=== PATIENT | female | born 1965 | race Caucasian/White ===

== ENCOUNTER → 2016-04-26 | Outpatient (CLI) | payer BC ==
[~2016-04-26] MED LIST: GEMCITABINE; PROT1TAB2 PO; TYLE325C PO; [UNRECOGNIZED DRUG - OTHER]; [UNRECOGNIZED DRUG - OTHER]
[2016-04-26 08:48] LABS: ABG HCO3 26.8 MEQ/L (22.0-26.0); ABG PARTIAL PRESSURE CO2 42.7 mmHg (35.0-45.0); ABG PARTIAL PRESSURE O2 94.2 mmHg (75.0-100.0); ABG STANDARD HCO3 26.2 MEQ/L (22.0-26.0); ABG TOTAL CO2 28.1 MEQ/L (22.0-29.0); ABG pH (ARTERIAL) 7.416 UNITS (7.350-7.450)
[2016-04-26 09:00] LABS: MEAN CORPUSCULAR HEMOGLOBIN 32.5 pg (27.0-33.0); MEAN CORPUSCULAR HGB CONC 33.4 g/dl (32.0-36.5); MEAN CORPUSCULAR VOLUME 97.3 fl (80.0-96.0); RED CELL DISTRIBUTION WIDTH 13.5 % (11.5-14.5); WHITE BLOOD COUNT 6.2 K/mm3 (4.0-10.0)
[2016-04-26 09:19] LABS: ANION GAP 7 MEQ/L (8-16); BLOOD UREA NITROGEN 17 MG/DL (7-18); CALCIUM LEVEL 9.4 MG/DL (8.5-10.1); CARBON DIOXIDE LEVEL 31 MEQ/L (21-32); CHLORIDE LEVEL 104 MEQ/L (98-107); CREATININE FOR GFR 0.84 MG/DL (0.55-1.02); GLOMERULAR FILTRATION RATE > 60.0 (>58); GLUCOSE, FASTING 114 MG/DL (70-105); POTASSIUM SERUM 4.6 MEQ/L (3.5-5.1); SODIUM LEVEL 142 MEQ/L (136-145)
[2016-04-26 09:26] LABS: INR 0.93
--- NOTE | 2016-04-26 09:28 | REP ---
Clinical: Preoperative assessment . Comparison: 01/29/2015 . Technique: PA and lateral. Findings: The mediastinum and cardiac silhouette are normal. Cpysfv-D-Etar with tip in the SVC. The lung murphy are clear and without acute consolidation, effusion, or pneumothorax. The skeletal structures are intact and normal. Impression: 1. No acute cardiopulmonary process. Signed by Espinoza Paris MD 04/26/2016 09:20 A
--- NOTE | 2016-04-26 11:12 | ECGEPIP ---
Stationary ECG Study [facility] Test Date: 2016-04-26 Pat Name: DAKOTA PONCE Department: Room: - Gender: F Manager Pharmacy: [facility] : 1965 Requested By: Khris Tello Order Number: [id number] Reading MD: Orestes Loco Measurements Intervals [place] Rate: 64 P: 61 ME: 155 QRS: 60 QRSD: 86 T: 41 QT: 408 QTc: 421 Interpretive Statements SINUS RHYTHM Comparison tracing not on file Electronically Signed On 04-26-2016 11:12:40 EST by Orestes Loco
== END ==
LOC: M LAB 08:16
PROVIDERS: ATTEND Thoracic Surgery (Cardiothoracic Vascular Surgery)
DX: Z01.818 Encounter for other preprocedural examination (principal)

== ENCOUNTER → 2016-05-01 | Outpatient (CLI) | payer BC ==
--- NOTE | 2016-05-01 20:06 | REP ---
CT study of the chest with IV contrast: History: Ampullary carcinoma with lung metastases. Comparison is made with prior studies. The most recent of these is a chest CT study from January 10, 2016. Comparison is also made with November 16, 2015, September 06, 2015, and July 23, 2015. CT findings: There is a right internal jugular vein [id number]-Z-Ufsa catheter. There is no evidence of pleural or pericardial effusion. No mediastinal adenopathy or hilar adenopathy is appreciated. No adrenal mass lesion is seen. There are clips and sutures in the upper abdomen. No hepatic mass lesion is seen. Bone window settings show no bony destructive lesion. There are however innumerable metastatic pulmonary nodules. The largest of these is a somewhat spiculated mass in the left lower lobe. This measures 2.7 cm by 2.3 cm today. On January 10, 2016 study it measured 2.3 by 1.8 cm. The nearby tumor deposit adjacent to the left posterolateral pericardium in the left lower lobe is again seen. This is probably unchanged. There are numerous other nodules which are increased in size compared to the most recent prior study of January 10, 2016. These include a nodule in the right middle lobe, which measures 10 mm today and was previously 7 mm. This is seen on page 62 of 108 of series 301 of today's exam. There is a 6 mm nodule in the left lower lobe on image 76 of 108 in series 301 of today's examination which was 3 mm in greatest diameter in December 2015. There are multiple other nodules which have grown similarly. I do not see any definitely new nodules. Impression: Progressive pulmonary metastatic disease. Innumerable pulmonary nodules are seen. Numerous nodules have increased in size since the most recent prior study of January 10, 2016. Signed by Marcus Cain MD 05/02/2016 08:00 A
== END ==
LOC: M RAD 16:54
PROVIDERS: ATTEND Thoracic Surgery (Cardiothoracic Vascular Surgery)
DX: R91.8 Other nonspecific abnormal finding of lung field (principal)

== ENCOUNTER 2016-05-16 15:18 | Emergency (ER) | payer BC ==
[2016-05-16] MEDS ORDERED: diphenhydrAMINE 25 MG CAP As Ordered ONE (16:37)
[2016-05-16] MEDS ORDERED: predniSONE 5 MG TAB As Ordered ONE (16:37)
--- NOTE | 2016-05-16 18:06 | EDDOCDS ---
Nurse's Notes [facility] Name: Sophie Parish Age: 51 yrs Sex: Female : 1965 Arrival Date: 05/16/2016 Time: 15:18 Bed 8 Private MD: Allegra Arboleda P. 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 Patient states that her tongue feels funny and that her lips feel tingly. Patient concerned for allergic reaction. Patient has paused Chemo regimen machine at present - infusaport noted to left upper chest. Onset: The symptoms/episode began/occurred suddenly. The patient has a history of a previous allergic reaction. The previous allergic reaction was localized. Anaphylaxis evaluation, the patient reports or I have noted the following symptoms which indicate a significant risk of anaphylaxis: no signs or symptoms of anaphylaxis were noted. Adult Sepsis Screening: The patient does not have new or worsening altered mentation. Patient's respiratory rate is less than 22. Systolic blood pressure is greater than 100. Patient has a qSOFA score of 0- Negative Sepsis Screen. Suicide/Homicide risk assessment- the patient denies having any suicidal and/or homicidal ideations and does not present with any other emotional, behavioral or mental health complaints. Status: Patient is not a sales and service consultant or dependent. Transition of care: patient was not received from another setting of care. 15:25 Acuity: PAYTON Level 3 hs1 15:25 Method Of Arrival: Walkin/Carried/Asstd hs1 Triage Assessment: 15:32 General: Appears in no apparent distress, Behavior is anxious, cooperative. Pain: hs1 Location: throat Quality of pain is described as razor blades. HIV screening NA for this visit Offered previously. Respiratory: Reports no respiratory complaints. Historical: - Allergies: IV Dyepossibly; - Home Meds: 1. Protonix 40 mg Oral grps 1 packet 2 times per day 2. prochlorperazine maleate 10 mg Oral tab 1 tab 3 times per day 3. chemo regimen today * - PMHx: Cancer, Lung - Left; Cancer, Pancreas; - PSHx: wipple procedure; - Social history: Smoking status: Patient states former smoker of tobacco. No barriers to communication noted, The patient speaks fluent Slovenian, Speaks appropriately for age. - Family history: No immediate family members are acutely ill. - : The pt / caregiver states he / she is not on anticoagulants. Home medication list is obtained from the patient. - Exposure Risk Screening:: None identified. Screenin:01 Screening information is obtained from the patient. Fall risk: No risks identified. mb9 Assistance ADL's: requires no assistance with activities of daily living. Abuse/DV Screen: The patient / caregiver reports he/she is: not in a situation that causes fear, pain or injury. Nutritional screening: No deficits noted. Advance Directives: There is no active DNR order. home support is adequate. Assessment: 15:50 General: Appears in no apparent distress, Behavior is appropriate for age, cooperative. mb9 Pain: Denies pain. Respiratory: Airway is patent Respiratory effort is even, unlabored, Breath sounds are clear bilaterally. Derm: Reports pt states, "it felt like my tongue was swollen and it felt like razor blades when I would swallow. It feels like its better now". 17:08 Reassessment: Patient appears in no apparent distress at this time. Patient states mb9 symptoms have improved. General: Behavior is fussy. Pain: Denies pain. Respiratory: Airway is patent Respiratory effort is even, unlabored. 18:00 Reassessment: Patient appears in no apparent distress at this time. Patient states mb9 symptoms have improved. Adult Sepsis Screening: The patient does not have new or worsening altered mentation. Patient's respiratory rate is less than 22. Systolic blood pressure is greater than 100. Patient has a qSOFA score of 0- Negative Sepsis Screen. General: Appears in no apparent distress, Behavior is appropriate for age, cooperative. Respiratory: Airway is patent Respiratory effort is even, unlabored. Vital Signs: 15:20 BP 158 / 93; Pulse 83; Resp 20; Temp 97.7; Pulse Ox 100% on R/A; Weight 63.5 kg (R); elp Height 5 ft. 6 in. (167.64 cm) (R); 18:01 BP 132 / 76; Pulse 84; Resp 17; Temp 98.3(T); Pulse Ox 99% ; mb9 15:20 Body Mass Index 22.60 (63.50 kg, 167.64 cm) elp Vitals: 15:20 Log In Time: May 16, 2016 at 15:18. RN notified that patient meets Red Flag elp criteria. ED Course: 15:20 Patient visited by Alondra Berry PCA. elp 15:20 Allegra Arboleda is Private Physician. elp 15:20 Patient moved to Waiting elp 15:21 Patient visited by Alondra Berry PCA. elp 15:22 Shannon Frank,RN is Primary Nurse. elp 15:22 Patient moved to 8 elp 15:29 Triage Initiated hs1 15:53 [facility]. ke 15:53 Patient visited by Manny Moy FNP. ke 15:53 Patient visited by Manny Moy FNP. ke 16:23 Patient visited by Manny Moy FNP. ke 16:58 Patient visited by Manny Moy FNP. ke 17:30 Patient visited by Manny Moy FNP. ke 17:31 Allegra Arboleda is Referral Physician. ke 18:01 The patient / caregiver is instructed regarding the plan of care and ED course. Patient mb9 has correct armband on for positive identification. 18:01 Discontinued pt had 20 gauge watts neeble in place to infusaport to left chest. site mb9 discontinued at this time. No procedures done that require assistance. Administered Medications: 16:50 Drug: diphenhydrAMINE 25 mg [diphenhydramine 25 mg capsule (1 caps)] Route: PO; mb9 16:51 Drug: predniSONE 20 mg [prednisone 5 mg tablet (4 tabs)] Route: PO; mb9 18:01 Drug: heparin 100units/mL flush (infusaport) 5 ml [heparin, porcine (PF) 10 unit/mL mb9 intravenous syringe (5 mL)] Route: IVP; Site: Implantable Access Device; Order Results: There are currently no results for this order. Outcome: 17:31 Discharge ordered by Provider. ke 18:01 Discharge Assessment: Patient awake, alert and oriented x 3. No cognitive and/or mb9 functional deficits noted. Patient verbalized understanding of disposition instructions. patient administered narcotics - no. The following High Risk Discharge criteria are identified: None. Discharged to home ambulatory. Condition: good Condition: stable Condition: improved. Discharge instructions given to patient, Instructed on discharge instructions, follow up and referral plans. medication usage, Demonstrated understanding of instructions, medications, Pt was receptive of discharge instructions/ teaching. Prescriptions given X 2. No special radiology studies were completed. Property :Personal belongings accompany Pt. 18:05 Patient left the ED. mb9 Signatures: Manny Moy FNP FNP ke Sherrill, Hannah, RN RN hs1 Alondra Berry PCA PCA elp Belles, Michael,CHRIS RN mb9 MTDD
--- NOTE | 2016-05-16 18:06 | EDDOCDS ---
Physician Documentation [facility] Name: Sophie Parish Age: 51 yrs Sex: Female : 1965 Arrival Date: 05/16/2016 Time: 15:18 Bed 8 Private MD: Allegra Arboleda P. Disposition: 05/16/16 17:31 Discharged to Home/Self Care. Impression: Allergy status to other drugs, medicaments and biological substances status. - Condition is Stable. - Discharge Instructions: Allergies. - Prescriptions for Benadryl 25 mg Oral Capsule - take 1 capsule by ORAL route every 6 hours As needed; 30 tablet. Prednisone 20 mg Oral Tablet - take 1 tablet by ORAL route once daily for 5 days; 5 tablet. - Medication Reconciliation, Local Pharmacy Hours form. - Follow up: Allegra Arboleda; When: Tomorrow; Reason: Recheck today's complaints, Continuance of care. - Problem is an acute exacerbation. - Symptoms have improved. Historical: - Allergies: IV Dyepossibly; - Home Meds: 1. Protonix 40 mg Oral grps 1 packet 2 times per day 2. prochlorperazine maleate 10 mg Oral tab 1 tab 3 times per day 3. chemo regimen today * - PMHx: Cancer, Lung - Left; Cancer, Pancreas; - PSHx: wipple procedure; - Social history: Smoking status: Patient states former smoker of tobacco. No barriers to communication noted, The patient speaks fluent Swedish, Speaks appropriately for age. - Family history: No immediate family members are acutely ill. - : The pt / caregiver states he / she is not on anticoagulants. Home medication list is obtained from the patient. - Exposure Risk Screening:: None identified. Vital Signs: 05/16 15:20 BP 158 / 93; Pulse 83; Resp 20; Temp 97.7; Pulse Ox 100% on R/A; Weight 63.5 kg / elp 139.99 lbs (R); Height 5 ft. 6 in. (167.64 cm) (R); 18:01 BP 132 / 76; Pulse 84; Resp 17; Temp 98.3(T); Pulse Ox 99% ; mb9 15:20 Body Mass Index 22.60 (63.50 kg, 167.64 cm) elp MDM: 16:18 diphenhydrAMINE 25 mg PO once ordered. carissa 16:18 predniSONE 20 mg PO once; administer with food or milk ordered. carissa 17:22 Financial registration complete. gjivania 18:01 heparin 100units/mL flush (infusaport) 5 ml IVP once; flush first with 10mL of NS mb9 followed by heparin ordered. Administered Medications: 16:50 Drug: diphenhydrAMINE 25 mg [diphenhydramine 25 mg capsule (1 caps)] Route: PO; mb9 16:51 Drug: predniSONE 20 mg [prednisone 5 mg tablet (4 tabs)] Route: PO; mb9 18:01 Drug: heparin 100units/mL flush (infusaport) 5 ml [heparin, porcine (PF) 10 unit/mL mb9 intravenous syringe (5 mL)] Route: IVP; Site: Implantable Access Device; Signatures: Manny Moy, KETTLE COOK KETTLE COOK Arlene Howard RN RN hs1 Jabier Jenkins RN RN mb9 Marimar Schmitz [facility] HILLARY
--- NOTE | 2016-05-18 19:06 | EDDOCDS ---
Nurse's Notes [facility] Name: Sophie Parish Age: 51 yrs Sex: Female : 1965 Arrival Date: 05/16/2016 Time: 15:18 Bed 8 Private MD: Allegra Arboleda P. 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 Patient states that her tongue feels funny and that her lips feel tingly. Patient concerned for allergic reaction. Patient has paused Chemo regimen machine at present - infusaport noted to left upper chest. Onset: The symptoms/episode began/occurred suddenly. The patient has a history of a previous allergic reaction. The previous allergic reaction was localized. Anaphylaxis evaluation, the patient reports or I have noted the following symptoms which indicate a significant risk of anaphylaxis: no signs or symptoms of anaphylaxis were noted. Adult Sepsis Screening: The patient does not have new or worsening altered mentation. Patient's respiratory rate is less than 22. Systolic blood pressure is greater than 100. Patient has a qSOFA score of 0- Negative Sepsis Screen. Suicide/Homicide risk assessment- the patient denies having any suicidal and/or homicidal ideations and does not present with any other emotional, behavioral or mental health complaints. Status: Patient is not a vp celebrity services or dependent. Transition of care: patient was not received from another setting of care. 15:25 Acuity: PAYTON Level 3 hs1 15:25 Method Of Arrival: Walkin/Carried/Asstd hs1 Triage Assessment: 15:32 General: Appears in no apparent distress, Behavior is anxious, cooperative. Pain: hs1 Location: throat Quality of pain is described as razor blades. HIV screening NA for this visit Offered previously. Respiratory: Reports no respiratory complaints. Historical: - Allergies: IV Dyepossibly; - Home Meds: 1. Protonix 40 mg Oral grps 1 packet 2 times per day 2. prochlorperazine maleate 10 mg Oral tab 1 tab 3 times per day 3. chemo regimen today * - PMHx: Cancer, Lung - Left; Cancer, Pancreas; - PSHx: wipple procedure; - Social history: Smoking status: Patient states former smoker of tobacco. No barriers to communication noted, The patient speaks fluent German, Speaks appropriately for age. - Family history: No immediate family members are acutely ill. - : The pt / caregiver states he / she is not on anticoagulants. Home medication list is obtained from the patient. - Exposure Risk Screening:: None identified. Screenin:01 Screening information is obtained from the patient. Fall risk: No risks identified. mb9 Assistance ADL's: requires no assistance with activities of daily living. Abuse/DV Screen: The patient / caregiver reports he/she is: not in a situation that causes fear, pain or injury. Nutritional screening: No deficits noted. Advance Directives: There is no active DNR order. home support is adequate. Assessment: 15:50 General: Appears in no apparent distress, Behavior is appropriate for age, cooperative. mb9 Pain: Denies pain. Respiratory: Airway is patent Respiratory effort is even, unlabored, Breath sounds are clear bilaterally. Derm: Reports pt states, "it felt like my tongue was swollen and it felt like razor blades when I would swallow. It feels like its better now". 17:08 Reassessment: Patient appears in no apparent distress at this time. Patient states mb9 symptoms have improved. General: Behavior is fussy. Pain: Denies pain. Respiratory: Airway is patent Respiratory effort is even, unlabored. 18:00 Reassessment: Patient appears in no apparent distress at this time. Patient states mb9 symptoms have improved. Adult Sepsis Screening: The patient does not have new or worsening altered mentation. Patient's respiratory rate is less than 22. Systolic blood pressure is greater than 100. Patient has a qSOFA score of 0- Negative Sepsis Screen. General: Appears in no apparent distress, Behavior is appropriate for age, cooperative. Respiratory: Airway is patent Respiratory effort is even, unlabored. Vital Signs: 15:20 BP 158 / 93; Pulse 83; Resp 20; Temp 97.7; Pulse Ox 100% on R/A; Weight 63.5 kg (R); elp Height 5 ft. 6 in. (167.64 cm) (R); 18:01 BP 132 / 76; Pulse 84; Resp 17; Temp 98.3(T); Pulse Ox 99% ; mb9 15:20 Body Mass Index 22.60 (63.50 kg, 167.64 cm) elp Vitals: 15:20 Log In Time: May 16, 2016 at 15:18. RN notified that patient meets Red Flag elp criteria. ED Course: 15:20 Patient visited by Alondra Berry PCA. elp 15:20 Allegra Arboleda is Private Physician. elp 15:20 Patient moved to Waiting elp 15:21 Patient visited by Alondra Berry PCA. elp 15:22 Shannon Frank,RN is Primary Nurse. elp 15:22 Patient moved to 8 elp 15:29 Triage Initiated hs1 15:53 Manny [facility]oy FNP [facility]. ke 15:53 Patient visited by Manny Moy FNP. ke 15:53 Patient visited by Manny Moy FNP. ke 16:23 Patient visited by Manny Moy FNP. ke 16:58 Patient visited by Manny Moy FNP. ke 17:30 Patient visited by Manny Moy FNP. ke 17:31 Allegra Arboleda is Referral Physician. ke 18:01 The patient / caregiver is instructed regarding the plan of care and ED course. Patient jg9 has correct armband on for positive identification. 18:01 Discontinued pt had 20 gauge watts neeble in place to infusaport to left chest. site mb9 discontinued at this time. No procedures done that require assistance. 18:19 [facility] Payment Agreement was scanned into [employer] and attached to record. [facility] 05/17 11:34 T-Sheet-- Draft Copy was scanned into [employer] and attached to record. gb Administered Medications: 05/16 16:50 Drug: diphenhydrAMINE 25 mg [diphenhydramine 25 mg capsule (1 caps)] Route: PO; mb9 16:51 Drug: predniSONE 20 mg [prednisone 5 mg tablet (4 tabs)] Route: PO; mb9 18:01 Drug: heparin 100units/mL flush (infusaport) 5 ml [heparin, porcine (PF) 10 unit/mL mb9 intravenous syringe (5 mL)] Route: IVP; Site: Implantable Access Device; Order Results: There are currently no results for this order. Outcome: 17:31 Discharge ordered by Provider. ke 18:01 Discharge Assessment: Patient awake, alert and oriented x 3. No cognitive and/or mb9 functional deficits noted. Patient verbalized understanding of disposition instructions. patient administered narcotics - no. The following High Risk Discharge criteria are identified: None. Discharged to home ambulatory. Condition: good Condition: stable Condition: improved. Discharge instructions given to patient, Instructed on discharge instructions, follow up and referral plans. medication usage, Demonstrated understanding of instructions, medications, Pt was receptive of discharge instructions/ teaching. Prescriptions given X 2. No special radiology studies were completed. Property :Personal belongings accompany Pt. 18:05 Patient left the ED. mb9 Signatures: Pina Felder, Reg Reg gb Manny Moy, FOOD SERVICE SPECIALIST FOOD SERVICE SPECIALIST Arlene Howard RN RN hs1 Alondra Berry, Jabier Reynolds RN RN mb9 Marimar Schmitz Chart Complete [place]ILLARY
--- NOTE | 2016-05-18 19:06 | EDDOCDS ---
Physician Documentation [facility] Name: Sophie Parish Age: 51 yrs Sex: Female : 1965 Arrival Date: 05/16/2016 Time: 15:18 Bed 8 Private MD: Allegra Arboleda P. Disposition: 05/16/16 17:31 Discharged to Home/Self Care. Impression: Allergy status to other drugs, medicaments and biological substances status. - Condition is Stable. - Discharge Instructions: Allergies. - Prescriptions for Benadryl 25 mg Oral Capsule - take 1 capsule by ORAL route every 6 hours As needed; 30 tablet. Prednisone 20 mg Oral Tablet - take 1 tablet by ORAL route once daily for 5 days; 5 tablet. - Medication Reconciliation, Local Pharmacy Hours form. - Follow up: Allegra Arboleda; When: Tomorrow; Reason: Recheck today's complaints, Continuance of care. - Problem is an acute exacerbation. - Symptoms have improved. Historical: - Allergies: IV Dyepossibly; - Home Meds: 1. Protonix 40 mg Oral grps 1 packet 2 times per day 2. prochlorperazine maleate 10 mg Oral tab 1 tab 3 times per day 3. chemo regimen today * - PMHx: Cancer, Lung - Left; Cancer, Pancreas; - PSHx: wipple procedure; - Social history: Smoking status: Patient states former smoker of tobacco. No barriers to communication noted, The patient speaks fluent Telugu, Speaks appropriately for age. - Family history: No immediate family members are acutely ill. - : The pt / caregiver states he / she is not on anticoagulants. Home medication list is obtained from the patient. - Exposure Risk Screening:: None identified. Vital Signs: 05/16 15:20 BP 158 / 93; Pulse 83; Resp 20; Temp 97.7; Pulse Ox 100% on R/A; Weight 63.5 kg / elp 139.99 lbs (R); Height 5 ft. 6 in. (167.64 cm) (R); 18:01 BP 132 / 76; Pulse 84; Resp 17; Temp 98.3(T); Pulse Ox 99% ; mb9 15:20 Body Mass Index 22.60 (63.50 kg, 167.64 cm) elp MDM: 16:18 diphenhydrAMINE 25 mg PO once ordered. ke 16:18 predniSONE 20 mg PO once; administer with food or milk ordered. ke 17:22 Financial registration complete. b 18:01 heparin 100units/mL flush (infusaport) 5 ml IVP once; flush first with 10mL of NS mb9 followed by heparin ordered. 18:19 [facility] Payment Agreement was scanned into [employer] and attached to record. [facility] 05/17 11:34 T-Sheet-- Draft Copy was scanned into [employer] and attached to record. gb Administered Medications: 05/16 16:50 Drug: diphenhydrAMINE 25 mg [diphenhydramine 25 mg capsule (1 caps)] Route: PO; mb9 16:51 Drug: predniSONE 20 mg [prednisone 5 mg tablet (4 tabs)] Route: PO; mb9 18:01 Drug: heparin 100units/mL flush (infusaport) 5 ml [heparin, porcine (PF) 10 unit/mL mb9 intravenous syringe (5 mL)] Route: IVP; Site: Implantable Access Device; Signatures: Pina Felder, Reg Reg gb Manny Moy, RENEWALS MANAGER RENEWALS MANAGER Arlene Howard RN RN hs1 Jabier JenkinsRN RN mb9 Marimar Schmitz The chart was reviewed and I authenticate all verbal orders and agree with the evaluation and treatment provided.Attachments: 18:19 [facility] Payment Agreement [facility] 05/17 11:34 T-Sheet-- Draft Copy gb Chart Complete MTDD
--- NOTE | 2016-05-18 19:06 | EDDOCDS ---
Physician Documentation [employer] Name: Sophie Parish Age: 51 yrs Sex: Female : 1965 Arrival Date: 05/16/2016 Time: 15:18 Bed 8 Private MD: Allegra Arboleda P. Disposition: 05/16/16 17:31 Discharged to Home/Self Care. Impression: Allergy status to other drugs, medicaments and biological substances status. - Condition is Stable. - Discharge Instructions: Allergies. - Prescriptions for Benadryl 25 mg Oral Capsule - take 1 capsule by ORAL route every 6 hours As needed; 30 tablet. Prednisone 20 mg Oral Tablet - take 1 tablet by ORAL route once daily for 5 days; 5 tablet. - Medication Reconciliation, Local Pharmacy Hours form. - Follow up: Allegra Arboleda; When: Tomorrow; Reason: Recheck today's complaints, Continuance of care. - Problem is an acute exacerbation. - Symptoms have improved. Historical: - Allergies: IV Dyepossibly; - Home Meds: 1. Protonix 40 mg Oral grps 1 packet 2 times per day 2. prochlorperazine maleate 10 mg Oral tab 1 tab 3 times per day 3. chemo regimen today * - PMHx: Cancer, Lung - Left; Cancer, Pancreas; - PSHx: wipple procedure; - Social history: Smoking status: Patient states former smoker of tobacco. No barriers to communication noted, The patient speaks fluent Croatian, Speaks appropriately for age. - Family history: No immediate family members are acutely ill. - : The pt / caregiver states he / she is not on anticoagulants. Home medication list is obtained from the patient. - Exposure Risk Screening:: None identified. Vital Signs: 05/16 15:20 BP 158 / 93; Pulse 83; Resp 20; Temp 97.7; Pulse Ox 100% on R/A; Weight 63.5 kg / elp 139.99 lbs (R); Height 5 ft. 6 in. (167.64 cm) (R); 18:01 BP 132 / 76; Pulse 84; Resp 17; Temp 98.3(T); Pulse Ox 99% ; mb9 15:20 Body Mass Index 22.60 (63.50 kg, 167.64 cm) elp MDM: 16:18 diphenhydrAMINE 25 mg PO once ordered. ke 16:18 predniSONE 20 mg PO once; administer with food or milk ordered. ke 17:22 Financial registration complete. b 18:01 heparin 100units/mL flush (infusaport) 5 ml IVP once; flush first with 10mL of NS mb9 followed by heparin ordered. 18:19 [facility] Payment Agreement was scanned into [email or web address] and attached to record. [facility] 05/17 11:34 T-Sheet-- Draft Copy was scanned into [email or web address] and attached to record. gb Administered Medications: 05/16 16:50 Drug: diphenhydrAMINE 25 mg [diphenhydramine 25 mg capsule (1 caps)] Route: PO; mb9 16:51 Drug: predniSONE 20 mg [prednisone 5 mg tablet (4 tabs)] Route: PO; mb9 18:01 Drug: heparin 100units/mL flush (infusaport) 5 ml [heparin, porcine (PF) 10 unit/mL mb9 intravenous syringe (5 mL)] Route: IVP; Site: Implantable Access Device; Signatures: Pina Felder, Reg Reg gb Manny Moy, COPYING MACHINE MECHANIC COPYING MACHINE MECHANIC Arlene Howard RN RN hs1 Jabier JenkinsRN RN mb9 Marimar Schmitz The chart was reviewed and I authenticate all verbal orders and agree with the evaluation and treatment provided.Attachments: 18:19 [facility] Payment Agreement [facility] 05/17 11:34 T-Sheet-- Draft Copy gb Chart Complete MTDD
== END 2016-05-16 18:05 | disposition home or self-care (01) ==
LOC: M ED 15:18
DX: R22.0 Localized swelling, mass and lump, head (principal); T45.1X5A Adverse effect of antineoplastic and immunosuppressive drugs, initial encounter; Y92.89 Other specified places as the place of occurrence of the external cause; Y93.89 Activity, other specified; Y99.8 Other external cause status; C34.90 Malignant neoplasm of unspecified part of unspecified bronchus or lung; C25.9 Malignant neoplasm of pancreas, unspecified; Z87.891 Personal history of nicotine dependence; Z79.899 Other long term (current) drug therapy; Z91.041 Radiographic dye allergy status

== ENCOUNTER → 2016-05-30 | Outpatient (REF) | payer BC | LOC: M LAB REF 12:43 | PROVIDERS: ATTEND Internal Medicine Medical Oncology | DX: C24.1 Malignant neoplasm of ampulla of Vater (principal) ==

== ENCOUNTER → 2016-06-27 | Outpatient (REF) | payer BC | LOC: M LAB REF 12:19 | PROVIDERS: ATTEND Internal Medicine Medical Oncology | DX: C24.1 Malignant neoplasm of ampulla of Vater (principal) ==

== ENCOUNTER → 2016-07-05 | Outpatient (CLI) | payer BC ==
[~2016-07-05] MED LIST changes: +ISOVUE-300 61% 50ML VIAL (Q9967) As Ordered ONE
--- NOTE | 2016-07-05 20:25 | REPKIM ---
CLINICAL HISTORY: Patient with metastatic pancreatic ca is receiving ongoing chemotherapy via right IJ chest [id number]-[id number]. Patient presents for suspected port malfunction. PROCEDURE PERFORMED: Contrast injection via the pre-existing chest port INTERVENTIONALIST: Nadeem Park MD CONSENT: The risks, benefits and alternatives to the procedure were explained to the patient and informed written consent was obtained. CONTRAST: 5 mL Isovue 300 EBL: None PROCEDURE/FINDINGS: The patient was brought to the interventional radiology suite and was positioned supine on the table. Time out procedure was performed. The right chest was prepped and draped in the usual sterile fashion. Initial fluoroscopy showed the pre-existing right chest Mlptkw-B-Ezbs with its tip at the SVC. The fluoroscopy showed the catheter in a satisfactory course with no evidence of kink. The port was accessed using a 22-gauge Blair needle. Contrast was injected and DSA images were obtained. This showed the port is patent with no evidence of extravasation of contrast. The port was then flushed with saline. Heparin (100 units/mL) was locked in the port. The Blair needle was removed. A sterile dressing was applied. The patient tolerated the procedure well with no immediate complications. This procedure was performed using fluoroscopy. Dr. Park was present. IMPRESSION: The pre-existing right chest Wwetvl-U-Dikj catheter is patent in a satisfactory course with its tip at the SVC. No evidence of leak. The port aspirates and flushes freely. The chest xmyuqy-b-wrlv is ready for use. cc: Allegra Arboleda MD [facility]
== END | disposition home or self-care (01) ==
LOC: M IRPRO 11:07
PROVIDERS: ATTEND Internal Medicine Medical Oncology
DX: C25.9 Malignant neoplasm of pancreas, unspecified (principal); C79.9 Secondary malignant neoplasm of unspecified site
CPT/HCPCS: 36598; Q9967

== ENCOUNTER → 2016-07-25 | Outpatient (REF) | payer BC ==
[~2016-07-25] MED LIST changes: -ISOVUE-300 61% 50ML VIAL (Q9967) As Ordered ONE
== END ==
LOC: M LAB REF 14:51
PROVIDERS: ATTEND Internal Medicine Medical Oncology
DX: C24.1 Malignant neoplasm of ampulla of Vater (principal)

== ENCOUNTER → 2016-07-31 | Outpatient (CLI) | payer BC ==
[~2016-07-31] MED LIST changes: +GASTROGRAFIN SOLUTION 30ML (Q9963) As Ordered ONE; +ISOVUE-370 76% 100ML VIAL (Q9967) As Ordered ONE
--- NOTE | 2016-08-01 06:20 | REP ---
Clinical: Metastatic ampullary carcinoma for followup. Technique: Axial contrast enhanced images from the thoracic inlet to the upper abdomen using 100 ml Isovue 370 intravenous contrast material with coronal and sagittal re-formations. Comparison: 05/01/2016, 01/10/2016, 11/16/2015. Findings: While multiple bilateral metastatic foci are identified, there is an overall appearance of improvement. Specifically, no significant new nodule is identified and previously noted and measured nodules now appear decreased in size and/or less conspicuous. Specifically as example, the primary lesion in the left lower lobe previously appeared solid and measured greater than 2.7 cm while currently appearing partially necrotic and measuring up to approximately 1.9 cm maximal diameter. Similarly, a left lower lobe lesion in the deep posterior sulcus previously measuring 1.3 cm maximal diameter and currently measures 1.0 cm maximal diameter. Other scattered bilateral lesions appear less dense and/or decreased in size. No pleural effusion/reaction or pneumothorax noted. Tracheobronchial tree is patent. Axillary and mediastinal lymph nodes are nonspecific in appearance. Heart/pericardium appear normal. Thoracic aorta and pulmonary vasculature is unremarkable. Surrounding musculoskeletal structures are intact without focal osseous abnormality noted. Impression: 1. Improved appearance when compared to prior examination with specific, detailed lesion as described above appearing decreased in size and less conspicuous in nature. 2. No new significant pulmonary nodule/mass lesion noted. Signed by Espinoza Paris MD 08/01/2016 06:11 A
--- NOTE | 2016-08-01 06:33 | REP ---
Clinical: Metastatic ampullary carcinoma for followup. Technique: Axial contrast enhanced images from the lung bases to the pubic symphysis using oral and 100 ml Isovue 370 intravenous contrast material along with precontrast and delayed images of the abdomen as well as coronal and sagittal re-formations. Comparison: 07/23/15. Findings: The patient is again noted to be status post Whipple procedure and minuscule amount of residual pneumobilia in the central left intrahepatic biliary tree is again noted. The pancreas itself appears stable with chronic atrophic change as well as ductal dilatation possibly secondary to a stable 11 mm calcification in the head/neck region. The previously noted acute pancreatitis with inflammatory stranding involving the tail of pancreas and splenic hilum has completely resolved. Small lymph node in the region of the splenic hilum measures 7 mm and unchanged. No significant new adenopathy, fluid, stranding, or mass lesion is identified. Liver, spleen, bilateral adrenal glands and kidneys appear normal. The enteric system is without obstruction or acute inflammatory process although subtle likely chronic mural thickening to the sigmoid colon may warrant colonoscopy evaluation. Pelvis demonstrates normal bladder and age-appropriate uterus/adnexa. No pelvic fluid or ascites. No significant retroperitoneal or intraperitoneal adenopathy. No free air. No obvious mass lesion. Surrounding musculoskeletal structures demonstrate age-related changes without focal osseous abnormality. Impression: 1. Stable changes related to prior Whipple procedure and history of ampullary carcinoma without evidence for new, acute mass lesion, ascites, adenopathy, or infectious/inflammatory changes. Previously identified presumed pancreatitis on examination dated 07/23/2015 has resolved. 2. Mild and possibly chronic mural thickening to the sigmoid colon may warrant colonoscopy evaluation. Signed by Espinoza Paris MD 08/01/2016 06:24 A
== END ==
LOC: M RAD 12:58
PROVIDERS: ATTEND Internal Medicine Medical Oncology
DX: C24.1 Malignant neoplasm of ampulla of Vater (principal)

== ENCOUNTER 2016-08-03 16:29 | Outpatient (CLI) | payer BC ==
[~2016-08-03] VITALS: Ht 167.6 cm; Wt 60.9 kg
[~2016-08-03 16:29] MED LIST changes: +ACETAMINOPHEN TAB 650MG DOSE (2X325MG) PO SCH; -GASTROGRAFIN SOLUTION 30ML (Q9963) As Ordered ONE; -ISOVUE-370 76% 100ML VIAL (Q9967) As Ordered ONE
[2016-08-03] MEDS ORDERED: diphenhydrAMINE 50 MG CAP PO ONE (17:00)
[2016-08-03 18:05] VITALS: BP 125/72
[2016-08-03 21:10] VITALS: BP 126/71
[2016-08-03] MEDS ORDERED: FUROSEMIDE 20 MG/2 ML VIAL (J1940) IV ONE (22:00)
[2016-08-04 00:10] VITALS: BP 124/78
[2016-08-04 00:21] VITALS: BP 124/78
[2016-08-04 03:21] VITALS: BP 141/86
[2016-08-04 04:30] VITALS: BP 126/68
== END 2016-08-04 04:33 | disposition home or self-care (01) ==
LOC: M OPCLI4PV 16:29 → M MSPAV 16:29 → M OPCLI4PV 08-04 04:33 → UNDODISIN 08-04 04:33
PROVIDERS: ATTEND Internal Medicine Medical Oncology
DX: D64.9 Anemia, unspecified (principal); C24.1 Malignant neoplasm of ampulla of Vater
CPT/HCPCS: 36430; 86850; 86870; 86900; 86901; 86920; J1940; P9016; P9036

== ENCOUNTER → 2016-08-28 | Outpatient (REF) | payer BC ==
[~2016-08-28] MED LIST changes: -ACETAMINOPHEN TAB 650MG DOSE (2X325MG) PO SCH
== END ==
LOC: M LAB REF 17:07
PROVIDERS: ATTEND Internal Medicine Medical Oncology
DX: C24.1 Malignant neoplasm of ampulla of Vater (principal)

== ENCOUNTER → 2016-09-19 | Outpatient (REF) | payer BC | LOC: M LAB REF 13:01 | PROVIDERS: ATTEND Internal Medicine Medical Oncology | DX: C24.1 Malignant neoplasm of ampulla of Vater (principal) ==

== ENCOUNTER → 2016-10-23 | Outpatient (CLI) | payer BC ==
[~2016-10-23] MED LIST changes: +GASTROGRAFIN SOLUTION 30ML (Q9963) As Ordered ONE; +ISOVUE-370 76% 100ML VIAL (Q9967) As Ordered ONE
--- NOTE | 2016-10-23 23:59 | REP ---
Clinical: Ampullary carcinoma. Post therapeutic follow-up evaluation. Comparison: 07/31/2016. Technique: Axial contrast enhanced images from the thoracic inlet to the pubic symphysis using 100 ml Isovue 370 intravenous contrast material with coronal and sagittal re-formations. Findings: The bilateral lung murphy are well-aerated and no consolidation, pleural effusion or pneumothorax is appreciated. The tracheobronchial tree is patent. No significant axillary, increased hilar, or mediastinal adenopathy is appreciated; right hilar lymph nodes are unchanged. Thoracic aorta, pulmonary vasculature, and heart/pericardium are normal. Scrutinized evaluation of the lung murphy demonstrates no new nodule or mass lesion. Previously identified scattered nodules and left lower lobe mass are all either stable or less conspicuous and demonstrate decreased soft tissue components. No nodular densities appreciated greater than 4 mm. Left lower lobe metastatic focus measures approximately 14 mm maximal transverse diameter previously measuring approximately 19 mm. Impression: 1. Follow-up demonstrates the left lower lobe metastatic focus and small scattered nodular densities to either have decreased in size and conspicuity or remains stable. Specifically, the left lower lobe metastatic focus has decreased from 19 mm to 14 mm maximal transverse diameter. No new lesions are identified. 2. No new acute mediastinal or pleuroparenchymal process. Signed by Espinoza Paris MD 10/23/2016 11:51 P
--- NOTE | 2016-10-24 00:15 | REP ---
Clinical: Ampullary carcinoma. Post therapeutic follow-up evaluation. Comparison: 07/31/2016. Technique: Axial contrast enhanced images from the lung bases to the pubic symphysis using oral and 100 ml Isovue 370 intravenous contrast material coronal and sagittal re-formations. Findings: Liver, spleen, bilateral adrenal glands and kidneys are normal. The pancreas demonstrates atrophic appearance with ductal dilatation and proximal calculus measuring approximately 11 mm. The patient is noted to be status post Whipple procedure. The enteric system is without obstruction or acute inflammatory process. Few scattered sigmoid diverticula noted without acute diverticulitis. Pelvis demonstrates normal bladder and age-appropriate uterus/adnexa. No pelvic fluid or ascites. No free air. No significant adenopathy. No obvious mass lesion. Abdominal aorta and vasculature appear normal. Surrounding musculoskeletal structures are intact and without focal osseous abnormality. Impression: 1. Findings related to ampullary carcinoma including chronic pancreatic ductal dilatation and possibly obstructing 11 mm calculus as well as evidence for prior Whipple procedure. 2. No evidence for recurrence or metastatic disease. No adenopathy or ascites. Signed by Espinoza Paris MD 10/24/2016 12:06 A
== END ==
LOC: M RAD 09:04
PROVIDERS: ATTEND Internal Medicine Medical Oncology
DX: C24.1 Malignant neoplasm of ampulla of Vater (principal)

== ENCOUNTER → 2016-11-14 | Outpatient (REF) | payer BC ==
[~2016-11-14] MED LIST changes: -GASTROGRAFIN SOLUTION 30ML (Q9963) As Ordered ONE; -ISOVUE-370 76% 100ML VIAL (Q9967) As Ordered ONE
== END ==
LOC: M LAB REF 12:49
PROVIDERS: ATTEND Internal Medicine Medical Oncology
DX: C24.1 Malignant neoplasm of ampulla of Vater (principal)

== ENCOUNTER → 2017-01-02 | Outpatient (REF) | payer BC | LOC: M LAB REF 13:58 | PROVIDERS: ATTEND Internal Medicine Medical Oncology | DX: C24.1 Malignant neoplasm of ampulla of Vater (principal) ==

== ENCOUNTER → 2017-02-01 | Outpatient (REF) | payer BC ==
[2017-02-01 15:08] LABS: MAGNESIUM LEVEL 2.3 MG/DL (1.8-2.4)
[2017-02-01 16:20] LABS: FOLATE 21.5 NG/ML
== END ==
LOC: M LAB REF 13:45
PROVIDERS: ATTEND Internal Medicine Medical Oncology
DX: C24.1 Malignant neoplasm of ampulla of Vater (principal)

== ENCOUNTER → 2017-03-05 | Outpatient (REF) | payer BC | LOC: M LAB REF 13:26 | PROVIDERS: ATTEND Internal Medicine Medical Oncology | DX: C34.90 Malignant neoplasm of unspecified part of unspecified bronchus or lung (principal) ==

== ENCOUNTER → 2017-03-15 | Outpatient (CLI) | payer BC ==
[~2017-03-15] MED LIST changes: +GASTROGRAFIN SOLUTION 30ML (Q9963) As Ordered ONE; +ISOVUE-370 76% 100ML VIAL (Q9967) As Ordered ONE
--- NOTE | 2017-03-15 16:03 | REP ---
CT study of the abdomen and pelvis without and with IV contrast: With oral contrast. History: Metastatic ampullary carcinoma. Most recent comparison study is from October 23, 2016. Comparison is also made from July 31, [address] contrast dose: 100 mL of Isovue [address] findings: Preliminary digital bobbin handler radiograph shows an unremarkable bowel gas pattern. Lung window settings demonstrate bibasilar pulmonary nodules. These would be described in detail on chest CT report. No pleural effusion or upper abdominal ascites. The liver and the spleen are normal in size homogeneous in texture. The patient is status post a partial Whipple procedure and mild pneumobilia is again noted as a result. No adrenal lesion is seen. No upper abdominal lymphadenopathy is observed. There is a 1.1 cm calcification in the pancreatic head in or adjacent to the main pancreatic duct. There is atrophy of the body and tail of the pancreas and dilation of the main pancreatic duct. These findings are stable chronic. There is no evidence of portal or splenic vein thrombosis or other vascular impingement. No retroperitoneal mass or adenopathy is seen. No renal mass is seen. Gastric jejunostomy suture line is again seen. No obstructive gastrointestinal tract lesion is seen. No uterine or adnexal abnormality is observed. Urinary bladder is intact. No pelvic mass or adenopathy is seen. A normal appendix is seen along the posterior pelvic sidewall. No abdominal wall defect is seen. No bony destructive lesion is appreciated. Impression: Postoperative changes again noted in the upper abdomen. No evidence of intra-abdominal disease, recurrence or metastasis. Signed by Marcus Cain MD 03/15/2017 04:09 P
--- NOTE | 2017-03-15 16:14 | REP ---
CT chest with IV contrast: History: Metastatic ampullary carcinoma. Comparison chest CT study October 23, 2016 and July 31, 2016. CT contrast dose: 100 ml of intravenous Isovue [address] findings: There are numerous widely distributed bilateral metastatic soft tissue nodules in the lung murphy today. These are increased in number and in size when compared to the most recent prior study of October 23, 2016. This study had shown some improvement. Today's findings show progression when compared with the July 31, 2016 study as well. The largest lesion is in the left lower lobe, which measures 23 mm today, 15 mm in October of 2016 and 19 mm in July of 2016. Multiple new smaller pulmonary nodules are seen bilaterally including several in the 0.8-0.9 cm range. There is no evidence of pleural or pericardial effusion. No hilar or mediastinal mass or adenopathy is observed. No extrathoracic mass or adenopathy is seen. No bony destructive lesion is seen. Impression: Progressive pulmonary metastatic disease. Signed by Marcus Cain MD 03/15/2017 04:21 P
== END ==
LOC: M RAD 13:03
PROVIDERS: ATTEND Internal Medicine Medical Oncology
DX: C24.1 Malignant neoplasm of ampulla of Vater (principal); C78.00 Secondary malignant neoplasm of unspecified lung

== ENCOUNTER → 2017-04-17 | Outpatient (REF) | payer BC ==
[2017-04-17 13:24] LABS: CA19-9 TUMOR MARKER,CARBOHYDRA 26.4 U/ML (<35.0)
== END ==
LOC: M LAB REF 11:45
DX: C24.1 Malignant neoplasm of ampulla of Vater (principal)
CPT/HCPCS: 86301

== ENCOUNTER → 2017-05-01 | Outpatient (REF) | payer BC | LOC: M LAB REF 13:41 | DX: D12.6 Benign neoplasm of colon, unspecified (principal); C24.1 Malignant neoplasm of ampulla of Vater; C78.00 Secondary malignant neoplasm of unspecified lung; Z90.411 Acquired partial absence of pancreas; Z90.49 Acquired absence of other specified parts of digestive tract ==

== ENCOUNTER → 2017-05-29 | Outpatient (REF) | payer BC ==
[2017-05-29 15:09] LABS: CA19-9 TUMOR MARKER,CARBOHYDRA 34.3 U/ML (<35.0)
== END ==
LOC: M LAB REF 14:09
DX: C24.1 Malignant neoplasm of ampulla of Vater (principal)

== ENCOUNTER → 2017-06-06 | Outpatient (CLI) | payer BC ==
[~2017-06-06] MED LIST changes: +GASTROGRAFIN SOLUTION 30ML (Q9963) As Ordered; -GASTROGRAFIN SOLUTION 30ML (Q9963) As Ordered ONE; -GEMCITABINE; -ISOVUE-370 76% 100ML VIAL (Q9967) As Ordered ONE; -PROT1TAB2 PO; -TYLE325C PO; -[UNRECOGNIZED DRUG - OTHER]; -[UNRECOGNIZED DRUG - OTHER]
== END ==
LOC: M RAD 09:50
DX: C24.1 Malignant neoplasm of ampulla of Vater (principal); C78.00 Secondary malignant neoplasm of unspecified lung
CPT/HCPCS: Q9963

== ENCOUNTER → 2017-09-04 | Outpatient (REF) | payer BC ==
[2017-09-04 15:15] LABS: CA19-9 TUMOR MARKER,CARBOHYDRA 53.1 U/ML (<35.0)
== END ==
LOC: M LAB REF 13:45
DX: C24.1 Malignant neoplasm of ampulla of Vater (principal); C78.00 Secondary malignant neoplasm of unspecified lung

== ENCOUNTER → 2017-10-10 | Outpatient (CLI) | payer BC ==
[~2017-10-10] MED LIST changes: +ISOVUE-370 76% 100ML VIAL (Q9967) As Ordered
== END ==
LOC: M RAD 07:35
DX: C24.1 Malignant neoplasm of ampulla of Vater (principal); C78.00 Secondary malignant neoplasm of unspecified lung
CPT/HCPCS: Q9963

== ENCOUNTER → 2017-10-16 | Outpatient (REF) | payer BC ==
[2017-10-16 14:33] LABS: CA19-9 TUMOR MARKER,CARBOHYDRA 63.5 U/ML (<35.0)
== END ==
LOC: M LAB REF 13:34
DX: C24.1 Malignant neoplasm of ampulla of Vater (principal); C78.00 Secondary malignant neoplasm of unspecified lung
CPT/HCPCS: 86301

== ENCOUNTER → 2017-11-13 | Outpatient (CLI) | payer BC | LOC: M RAD 09:03 | DX: C24.1 Malignant neoplasm of ampulla of Vater (principal); K76.89 Other specified diseases of liver | CPT/HCPCS: 76705 ==

== ENCOUNTER → 2018-01-14 | Outpatient (REF) | payer BC | LOC: M LAB REF 19:10 | DX: L57.0 Actinic keratosis (principal); C44.709 Unspecified malignant neoplasm of skin of left lower limb, including hip | CPT/HCPCS: 88305 ==

== ENCOUNTER → 2018-02-14 | Outpatient (CLI) | payer BC | LOC: M RAD 15:39 | DX: C24.1 Malignant neoplasm of ampulla of Vater (principal) | CPT/HCPCS: Q9963 ==

== ENCOUNTER → 2018-02-26 | Outpatient (REF) | payer BC | LOC: M LAB REF 16:02 | DX: D04.71 Carcinoma in situ of skin of right lower limb, including hip (principal) ==

== ENCOUNTER 2018-03-12 14:30 | Emergency (ER) | payer BC ==
[2018-03-12] MEDS: NS 1,000 ML IV (14:48)
[2018-03-12] MEDS: ONDANSETRON 4MG/2ML VIAL (J2405) IV (15:00)
[2018-03-12] MEDS: MORPHINE 2 MG/ML 1ML SYRINGE (J2270) IV ×2 (15:03→15:29)
[2018-03-12 15:41] LABS: BASO % 0.2 % (0.0-1.0); HEMATOCRIT 35.5 % (36.0-47.0); HEMOGLOBIN 11.3 g/dl (12.0-15.5); IMMATURE GRANULOCYTE % 1.6 % (0-3.0); LYMPH % 2.3 % (24.0-44.0); MEAN CORPUSCULAR HEMOGLOBIN 32.3 pg (27.0-33.0); MEAN CORPUSCULAR HGB CONC 31.8 g/dl (32.0-36.5); MEAN CORPUSCULAR VOLUME 101.4 fl (80.0-96.0); MONO # 0.1 10^3/uL (0.0-0.8); MONO % 0.6 % (0.0-5.0); NEUTROPHILS # 7.9 10^3/uL (1.8-7.7); NEUTROPHILS % 95.3 % (36.0-66.0); RED CELL DISTRIBUTION WIDTH 13.7 % (11.5-14.5); WHITE BLOOD COUNT 8.3 10^3/uL (4.0-10.0)
[2018-03-12 16:00] LABS: ALBUMIN 3.4 GM/DL (3.2-5.2); ALBUMIN/GLOBULIN RATIO 1.31 (1.00-1.93); ALKALINE PHOSPHATASE 283 U/L (45-117); ALT/SGPT 34 U/L (12-78); ANION GAP 7 MEQ/L (8-16); AST/SGOT 27 U/L (7-37); BILIRUBIN,DIRECT 0.2 MG/DL (0.0-0.2); BILIRUBIN,TOTAL 0.7 MG/DL (0.2-1.0); BLOOD UREA NITROGEN 8 MG/DL (7-18); CALCIUM LEVEL 8.1 MG/DL (8.5-10.1); CARBON DIOXIDE LEVEL 26 MEQ/L (21-32); CHLORIDE LEVEL 108 MEQ/L (98-107); CREATININE FOR GFR 0.75 MG/DL (0.55-1.30); GLOMERULAR FILTRATION RATE > 60.0 (>51); GLUCOSE, FASTING 143 MG/DL (70-100); POTASSIUM SERUM 3.8 MEQ/L (3.5-5.1); SODIUM LEVEL 141 MEQ/L (136-145)
[2018-03-12 16:20] LABS: LYMPH # 0.2 10^3/uL (1.5-4.5); PLATELET COUNT, AUTOMATED 87 10^3/uL (150-450); POSITIVE DIFF POS FLAG
[2018-03-12 16:23] LABS: IMMATURE PLATELET FRACTION % 5.6 % (0.0-9.6)
[2018-03-12] MEDS ORDERED: ISOVUE-370 76% 100ML VIAL (Q9967) As Ordered (16:25)
[2018-03-12 16:26] LABS: AMYLASE 64 U/L (25-115); LIPASE 56 U/L (73-393)
[2018-03-12] MEDS ORDERED: METOCLOPRAMIDE INJ 10MG/2ML VIAL (J2765) As Ordered (17:10)
[2018-03-12] MEDS: METOCLOPRAMIDE INJ 10MG/2ML VIAL (J2765) IV (17:15)
[2018-03-12] MEDS: SODIUM CHLORIDE 0.9% INJ 10 ML SYR IV (19:23)
== END 2018-03-12 19:24 | disposition home or self-care (01) ==
LOC: M ED 14:30
DX: R47.9 Unspecified speech disturbances (principal); M54.9 Dorsalgia, unspecified; T50.905A Adverse effect of unspecified drugs, medicaments and biological substances, initial encounter; C25.9 Malignant neoplasm of pancreas, unspecified; C78.00 Secondary malignant neoplasm of unspecified lung; G62.9 Polyneuropathy, unspecified; Z88.5 Allergy status to narcotic agent; Z79.899 Other long term (current) drug therapy
CPT/HCPCS: J2405

== ENCOUNTER → 2018-04-12 | Outpatient (REF) | payer BC ==
[~2018-04-12] MED LIST changes: +CREO24CA PO; +DEXA4TA PO; -GASTROGRAFIN SOLUTION 30ML (Q9963) As Ordered; +GEMCITABINE; -ISOVUE-370 76% 100ML VIAL (Q9967) As Ordered; +OXYC10TA12 PO; +PROBCAP4 PO; +PROC10TA4 PO; +PROT1TAB2 PO; +TYLE325C PO; +ZOFR4TAB16 PO; +[UNRECOGNIZED DRUG - OTHER]; +[UNRECOGNIZED DRUG - OTHER]
[2018-04-18 14:13] LABS: HPV HYBRID CAPTURE II Negative (Negative)
== END ==
LOC: M LAB REF 12:54
PROVIDERS: ATTEND Specialist
DX: Z12.4 Encounter for screening for malignant neoplasm of cervix (principal)
CPT/HCPCS: 87624; G0123

== ENCOUNTER → 2018-06-13 | Outpatient (CLI) | payer BC ==
[~2018-06-13] MED LIST changes: +GASTROGRAFIN SOLUTION 30ML (Q9963) As Ordered ONE; +ISOVUE-370 76% 100ML VIAL (Q9967) As Ordered ONE
--- NOTE | 2018-06-13 16:06 | REP ---
CT chest with IV contrast: History: Restaging metastatic stage IV ampullary adenocarcinoma. Most recent comparison chest CT study February 14, 2018. Comparison chest CT from October 10, [address] contrast dose: 100 mL of intravenous Isovue [address] findings: This patient has extensive pulmonary metastatic disease. There are innumerable pulmonary nodules bilaterally as before. I do not believe there are any new pulmonary nodules. However, unfortunately almost all of her preexisting pulmonary nodules have gotten somewhat larger since the most recent scan of February. The largest lesion is again noted in the left lower lobe. It's previous greatest dimension was 3.4 cm on February 14, 2018. Today it measures 3.9 cm and has become confluent with a posteriorly adjacent nodule. The above measurement excludes this adjacent nodule. It has increased in transverse short-axis dimension from 18 mm to 26 mm since the February 14, 2018 study. A left upper lobe nodule measured previously at 13 mm now measures 15 mm in greatest dimension. Proportionately similar increases in the patient's other pulmonary nodules are seen bilaterally. There is no hilar or mediastinal adenopathy. No focal liver lesion is seen. Pneumobilia is again seen as a postoperative finding. No pleural or pericardial effusion is seen. There is a right-sided Aqfcpr-W-Tixh catheter again noted. No bony destructive lesion is seen. Impression: Interval increase in the size , (although not the number) of the patient's bilaterally extensive pulmonary metastatic nodules. Electronically Signed by Marcus Cain MD 06/13/2018 04:36 P
--- NOTE | 2018-06-13 16:07 | REP ---
CT abdomen and pelvis with IV and oral contrast: History: Restaging metastatic ampullary adenocarcinoma. CT contrast dose: 100 mL of intravenous Isovue 370. Comparison CT study February 14, 2018 and October 10, 2017. CT findings: The liver and spleen are normal in size homogeneous in texture. No focal liver mass lesion is seen. Pneumobilia is again noted it is a postoperative finding. There is no evidence of mass lesion in the area of the pancreatic head or body. There is a large calcification in or adjacent to the main pancreatic duct again seen. This calcification measures 12 mm in greatest diameter. It is unchanged. The main pancreatic duct is somewhat dilated in the body and tail of the remaining pancreas. There is a small accessory splenule as before. No adrenal lesion is seen. No retroperitoneal mass or adenopathy is seen. The kidneys enhance symmetrically and are morphologically intact. Small and large intestinal bowel loops are normal in the abdomen and pelvis. Urinary bladder is unremarkable. Uterus is tipped somewhat to the right but appears intact. No abdominal wall defect is seen. No bony destructive lesion is seen. Impression: No evidence of intra-abdominal mass or adenopathy. Postoperative changes in the upper abdomen again noted. Electronically Signed by Marcus Cain MD 06/13/2018 04:36 P
== END ==
LOC: M RAD 12:11
PROVIDERS: ATTEND Internal Medicine Hematology & Oncology
DX: C24.1 Malignant neoplasm of ampulla of Vater (principal); C78.00 Secondary malignant neoplasm of unspecified lung
CPT/HCPCS: 71260; 74177; Q9963; Q9967

== ENCOUNTER → 2018-09-17 | Outpatient (CLI) | payer BC ==
[~2018-09-17] MED LIST changes: -GASTROGRAFIN SOLUTION 30ML (Q9963) As Ordered ONE; -ISOVUE-370 76% 100ML VIAL (Q9967) As Ordered ONE
--- NOTE | 2018-09-17 09:00 | REPMRS ---
Patient History Patient is postmenopausal, had previous chemotherapy at age 53, has history of other cancer at age 44, and is nulliparous. Family history of prostate cancer at age 50 or over in maternal grandfather, breast cancer at age 50 in maternal aunt. 3D TOMOSYNTHESIS WAS PERFORMED. Digital Mammo Screening Bilat: September 17, 2018 - Exam #: [id number] Bilateral CC and MLO view(s) were taken. Technologist: Marianna Billings, Technologist Prior study comparison: April 21, 2015, bilateral digital mammo screening bilat performed at . April 20, 2014, bilateral digital mammo screening bilat performed at . FINDINGS: The breast tissue is heterogeneously dense. This may lower the sensitivity of mammography. There has been no change in the appearance of the mammogram from the prior studies. There is a moderate amount of residual fibroglandular tissue which is fairly symmetric. There is no interval development of dominant mass, areas of architectural distortion, or clustered microcalcification typical of malignancy. Assessment: BI-RADS/ACR category 1 mammogram. Negative Mammogram. Recommendation Routine screening mammogram in 1 year (for women over age 40). This mammogram was interpreted with the aid of an FDA-approved computer-aided dectection system. Electronically Signed By: Vish Bradley MD 09/17/18 0817
== END ==
LOC: M RAD 07:57
PROVIDERS: ATTEND Specialist
DX: Z12.31 Encounter for screening mammogram for malignant neoplasm of breast (principal); Z92.21 Personal history of antineoplastic chemotherapy

== ENCOUNTER → 2019-02-25 | Outpatient (REF) | payer BC | LOC: M LAB REF 17:37 | PROVIDERS: ATTEND Dermatology | DX: C44.529 Squamous cell carcinoma of skin of other part of trunk (principal) ==

== ENCOUNTER → 2019-03-06 | Outpatient (CLI) | payer BC ==
[2019-03-06 07:51] LABS: BASO % 0.4 % (0.0-1.0); EOS # 0.1 10^3/uL (0.0-0.5); EOS % 1.7 % (0.0-3.0); HEMATOCRIT 38.1 % (36.0-47.0); HEMOGLOBIN 12.2 g/dl (12.0-15.5); LYMPH # 0.9 10^3/uL (1.5-5.0); MEAN CORPUSCULAR HEMOGLOBIN 29.2 pg (27.0-33.0); MEAN CORPUSCULAR VOLUME 91.1 fl (80.0-96.0); MONO # 0.6 10^3/uL (0.0-0.8); MONO % 10.6 % (0.0-5.0); NEUTROPHILS # 3.7 10^3/uL (1.5-8.5); NEUTROPHILS % 69.9 % (36.0-66.0); PLATELET COUNT, AUTOMATED 150 10^3/uL (150-450); RED BLOOD COUNT 4.18 10^6/uL (4.00-5.40); WHITE BLOOD COUNT 5.3 10^3/uL (4.0-10.0)
[2019-03-06 08:21] LABS: ALBUMIN 3.8 GM/DL (3.2-5.2); ALT/SGPT 33 U/L (12-78); BILIRUBIN,TOTAL 1.1 MG/DL (0.2-1.0); BLOOD UREA NITROGEN 14 MG/DL (7-18); CALCIUM LEVEL 8.7 MG/DL (8.5-10.1); CARBON DIOXIDE LEVEL 31 MEQ/L (21-32); CHLORIDE LEVEL 103 MEQ/L (98-107); CREATININE FOR GFR 0.84 MG/DL (0.55-1.30); GLOMERULAR FILTRATION RATE > 60.0 (>51); GLUCOSE, FASTING 102 MG/DL (70-100); POTASSIUM SERUM 4.3 MEQ/L (3.5-5.1); SODIUM LEVEL 139 MEQ/L (136-145); TOTAL PROTEIN 6.6 GM/DL (6.4-8.2)
[2019-03-06 09:21] LABS: HEMOGLOBIN A1c 5.3 %
== END ==
LOC: M LAB 07:19
PROVIDERS: ATTEND Family Medicine
DX: Z00.00 Encounter for general adult medical examination without abnormal findings (principal)

== ENCOUNTER → 2019-04-14 | Outpatient (REF) | payer BC | LOC: M LAB REF 09:19 | PROVIDERS: ATTEND Dermatology | DX: C44.529 Squamous cell carcinoma of skin of other part of trunk (principal) ==

== ENCOUNTER → 2019-05-14 | Outpatient (CLI) | payer BC ==
[~2019-05-14] MED LIST changes: +ACET1TAB55 PO; +CYCL10TA PO; +ESTR62CR PV; +GABA-843 PO; +PROBCAP14 PO; +PROHANCE 279.3MG/ML 15ML VIAL (A9576) As Ordered ONE
--- NOTE | 2019-05-14 20:17 | REPVR ---
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 Contrast material: PROHANCE; Contrast volume: 12 ml; Contrast route: 22G ANGIP; COMPARISON: CR Spine, Thoracic 3 VIEWS 04/29/2019 9:38 AM FINDINGS: Vertebrae: Unremarkable. Marrow: Abnormal marrow signal at T12 extending into the left pedicle and posterior right side of T6 extending into the right pedicle and posterior elements which is T1 dark, stir bright, heterogeneously enhancing post-contrast consistent with metastatic disease. Spinal cord: Normal signal. No cord compression. Discs/Spinal canal/Neural foramina: No significant disc disease. No significant spinal canal stenosis. Lungs: Multiple pulmonary parenchymal nodules including a large mass at the left lung base measuring approximately 6 cm consistent with metastatic disease. Soft tissues: Unremarkable. IMPRESSION: 1. Abnormal marrow signal at T12 extending into the left pedicle and posterior right side of T6 extending into the right pedicle and posterior elements which is T1 dark, stir bright, heterogeneously enhancing post-contrast consistent with metastatic disease. 2. Multiple pulmonary parenchymal nodules including a large mass at the left lung base measuring approximately 6 cm consistent with metastatic disease. Electronically signed by: Margarito Null On 05/14/2019 20:17:11 PM
== END ==
LOC: M RAD 17:03
PROVIDERS: ATTEND Family Medicine
DX: R91.8 Other nonspecific abnormal finding of lung field (principal); R93.7 Abnormal findings on diagnostic imaging of other parts of musculoskeletal system; C25.3 Malignant neoplasm of pancreatic duct
CPT/HCPCS: 72157; A9576

== ENCOUNTER → 2019-05-15 | Outpatient (CLI) | payer BC ==
[~2019-05-15] MED LIST changes: -PROHANCE 279.3MG/ML 15ML VIAL (A9576) As Ordered ONE
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
== END ==
LOC: M ONCR 16:04
PROVIDERS: ATTEND Radiology Radiation Oncology
DX: C24.1 Malignant neoplasm of ampulla of Vater (principal)

== ENCOUNTER 2019-05-16 17:06 | Inpatient (IN) | payer BC ==
[~2019-05-16] VITALS: Ht 167.6 cm; Wt 58.0 kg
[~2019-05-16 17:06] MED LIST changes: -ACET1TAB55 PO; -CYCL10TA PO; -ESTR62CR PV; -GABA-843 PO; -GASTROGRAFIN SOLUTION 30ML (Q9963) As Ordered ONE; -ISOVUE-370 76% 100ML VIAL (Q9967) As Ordered ONE; -PROBCAP14 PO
[2019-05-16 17:10] VITALS: BP 142/72
[2019-05-16] MEDS ORDERED: MAALOX 30 ML SUSP *UDC PO PRN (17:45)
[2019-05-16] MEDS ORDERED: ONDANSETRON 4MG/2ML VIAL (J2405) IV SCH (17:45)
[2019-05-16] MEDS ORDERED: oxyCODONE 5MG TAB PO PRN (17:45)
[2019-05-16] MEDS ORDERED: MOM 30ML SUSPENSION UDC PO PRN (17:45)
[2019-05-16] MEDS ORDERED: ONDANSETRON 4MG/2ML VIAL (J2405) IV PRN (18:00)
[2019-05-16] MEDS ORDERED: cefTRIAXone SOD 1 GM in D5W MINI-BAG PLUS 50 ML IV SCH (18:00)
[2019-05-16] MEDS ORDERED: LIDOCAINE 5% (LIDODERM) PATCH TD SCH (18:00)
[2019-05-16] MEDS: D5W/LR 1,000 ML IV SCH (18:11)
[2019-05-16] MEDS: MORPHINE 2 MG/ML 1ML VIAL (J2270) IV PRN ×2 (18:12→21:55)
[2019-05-16] MEDS ORDERED: ESTR62CR PV (20:05)
[2019-05-16] MEDS ORDERED: PROBCAP14 PO (20:05)
[2019-05-16] MEDS ORDERED: ACET1TAB55 PO (20:05)
[2019-05-16] MEDS ORDERED: GABA-843 PO (20:07)
[2019-05-16] MEDS ORDERED: CYCL10TA PO (20:07)
[2019-05-16] MEDS ORDERED: GABAPENTIN 300 MG CAP PO PRN (21:00)
[2019-05-16 22:00] VITALS: BP 146/77
[2019-05-16] MEDS ORDERED: CYCLOBENZAPRINE 10 MG TAB PO PRN (22:00)
--- NOTE | 2019-05-16 22:26 | REPVR ---
PROCEDURE INFORMATION: Exam: MRCP Abdomen Without Contrast Exam date and time: 05/16/2019 9:48 PM Age: 54 years old Clinical indication: Condition or disease; Cancer; Pancreas; Abdominal tenderness; Patient HX: Elevated lfts, R/O biliary obstruction, HX or pancreatic CA TECHNIQUE: Imaging protocol: MRCP of the abdomen without contrast. 3D rendering: MIP and/or 3D reconstructed images were created by the technologist. COMPARISON: CT ABD/PEL W/IV ORAL CONTRAS 05/16/2019 4:22 PM FINDINGS: Liver: No mass. Gallbladder and bile ducts: There has been a cholecystectomy. Pneumobilia likely related to prior surgical bypass. Irregular contour of the common bile duct with narrowing at the origin of the right and left pancreatic ducts may represent strictures either related to pancreatic carcinoma or prior inflammatory disease, history of pancreatitis, primary sclerosing cholangitis and least likely cholangiocarcinoma. Pancreas: Diffuse pancreatic atrophy. Dilated pancreatic duct in the body and tail measures up to 5.3 mm. Low signal focus measuring 6 mm in the proximal common bile duct appears to represent a source of obstruction likely representing a calculus. Spiculated contour of the pancreatic head and neck region measuring 1.6 x 2.4 cm may correspond to the known pancreatic carcinoma versus postoperative scarring. Spleen: Small cyst in the spleen measures 5 mm. Spleen otherwise unremarkable. Adrenals: Unremarkable. No mass. Kidneys and ureters: Unremarkable. No solid mass. No hydronephrosis. Stomach and bowel: Unremarkable. Intraperitoneal space: No fluid collection. Arteries: No abdominal aortic aneurysm. Bones/joints: Abnormal marrow space signal at the left-sided T11, as well as T9-T10 (seen on the dishwasher view only) likely metastatic. Soft tissues: Unremarkable. IMPRESSION: 1. There has been a cholecystectomy. 2. Diffuse pancreatic atrophy. Dilated pancreatic duct in the body and tail. Low signal focus measuring 6 mm in the proximal common bile duct appears to represent a source of obstruction likely representing a calculus. Spiculated contour of the pancreatic head and neck region. May correspond to the known pancreatic carcinoma versus postoperative scarring. 3. Pneumobilia likely related to prior surgical bypass. Irregular contour of the common bile duct with narrowing at the origin of the right and left pancreatic ducts may represent strictures either related to pancreatic carcinoma or prior inflammatory disease, history of pancreatitis, primary sclerosing cholangitis and least likely cholangiocarcinoma. 4. Probable metastatic lesions in the T9, T10 and T11 vertebral bodies. Electronically signed by: Margarito Null On 05/16/2019 22:27:26 PM
[2019-05-16] MEDS: PANTOPRAZOLE 40MG TAB (PROTONIX) PO SCH (22:49)
[2019-05-16] MEDS: CREON-24 CAPSULE PO SCH (22:50)
[2019-05-17] MEDS: MORPHINE 2 MG/ML 1ML VIAL (J2270) IV PRN (01:30)
[2019-05-17] MEDS: D5W/LR 1,000 ML IV SCH (05:00)
[2019-05-17 06:00] VITALS: BP 110/62
[2019-05-17] MEDS ORDERED: **NOTE PATIENT COMMENT** MISC XX SCH (06:00)
[2019-05-17 06:42] LABS: MEAN CORPUSCULAR HEMOGLOBIN 27.9 pg (27.0-33.0); MEAN CORPUSCULAR HGB CONC 31.7 g/dl (32.0-36.5); MEAN CORPUSCULAR VOLUME 88.2 fl (80.0-96.0); PLATELET COUNT, AUTOMATED 173 10^3/uL (150-450); RED BLOOD COUNT 4.08 10^6/uL (4.00-5.40); WHITE BLOOD COUNT 6.4 10^3/uL (4.0-10.0)
[2019-05-17 06:48] LABS: HEMOGLOBIN 11.4 g/dl (12.0-15.5)
[2019-05-17 07:01] LABS: INR 1.04; PROTHROMBIN TIME 13.3 SECONDS (11.8-14.0)
[2019-05-17 07:17] LABS: ALBUMIN 2.8 GM/DL (3.2-5.2); ALT/SGPT 233 U/L (12-78); BILIRUBIN,TOTAL 4.3 MG/DL (0.2-1.0); BLOOD UREA NITROGEN 7 MG/DL (7-18); CALCIUM LEVEL 8.8 MG/DL (8.5-10.1); CARBON DIOXIDE LEVEL 27 MEQ/L (21-32); CHLORIDE LEVEL 104 MEQ/L (98-107); CREATININE FOR GFR 0.62 MG/DL (0.55-1.30); GLOMERULAR FILTRATION RATE > 60.0 (>51); GLUCOSE, FASTING 134 MG/DL (70-100); POTASSIUM SERUM 3.7 MEQ/L (3.5-5.1); SODIUM LEVEL 136 MEQ/L (136-145); TOTAL PROTEIN 6.4 GM/DL (6.4-8.2)
[2019-05-17] MEDS: PANTOPRAZOLE 40MG TAB (PROTONIX) PO SCH (08:29)
[2019-05-17] MEDS: CREON-24 CAPSULE PO SCH (08:29)
[2019-05-17] MEDS ORDERED: ENOXAPARIN 40 MG/0.4 ML SYRINGE (J1650) SC SCH (09:00)
[2019-05-17 10:00] VITALS: BP 120/62
--- NOTE | 2019-05-17 10:10 | IPNPDOC ---
Subjective Date Seen The patient was seen on 05/17/19. Subjective Chief Complaint/HPI Sophie is not having any abd pain nor n/v this morning. She's afebrile. C/o back pain. Objective Physical Examination Eye Exam: Positive: Sclera icteric ENT Exam: Positive: Mucous membr. moist/pink Neck Exam: Positive: Supple Chest Exam: Positive: Normal air movement Heart Exam: Positive: Rate Normal, Normal S1, Normal S2 Abdomen Exam: Positive: Normal bowel sounds, Soft; Negative: Tenderness, Hepatospenomegaly Extremity Exam: Negative: Clubbing, Cyanosis, Edema Neuro Exam: Positive: Normal Speech Psych Exam: Positive: Mental status NL, Mood NL Assessment /Plan Assessment # Acute back pain due to metastatic pancreatic cancer to thoracic vertebrae - oxycodone prn - patient to be discharged today and travel to [facility] for further evaluation, as previously instructed to do so by her primary oncologist # Abd pain with nausea vomiting # Possible Biliary obstruction # Pancreatic duct stricture - abd pain is resolved, tolerated diet this morning - LFTs have trended lower - MRCP report reviewed ( ? 6 mm CBD stone, pancreatic stricture) - received IV rocephin x 1 dose last night - will need ERCP to investigate rise in LFTs, unable to do at [facility] due to hx of whipple procedure # PUD - continue protonix Dispo: Discharge, patient and to drive to [facility] for evaluation at [facility] Plan/VTE VTE Prophylaxis Ordered?: Yes VTE Exclusion Mechanical Proph: N/A:VTE Prophy Ordered VTE Exclusion Pharmacological: N/A:VTE Prophy Ordered VS, I&O, 24H, Fishbone Vital Signs/I&O Vital Signs Date Time Temp Pulse Resp B/P (MAP) Pulse Ox O2 Delivery O2 Flow Rate FiO2 05/17/19 06:00 99.5 73 19 110/62 (78) 97 Room Air I&O- Last 24 Hours up to 6 AM 05/17/19 05:59 Intake Total 650 ml Output Total 500 ml Balance 150 ml Laboratory Data 24H LABS Laboratory Tests 2 05/17/19 06:06: Nucleated Red Blood Cells % (auto) 0.0, Prothrombin Time 13.3, Prothromb Time International Ratio 1.04, Anion Gap 5L, Glomerular Filtration Rate > 60.0, Calcium Level 8.8, Total Bilirubin 4.3H, Aspartate Amino Transf (AST/SGOT) 74H, Alanine Aminotransferase (ALT/SGPT) 233H, Alkaline Phosphatase 861H, Total Protein 6.4, Albumin 2.8#L, Albumin/Globulin Ratio 0.78L CBC/BMP Laboratory Tests 05/17/19 06:06 RAINE STEPHENSON MD May 17, 2019 10:10
--- NOTE | 2019-05-17 16:49 | HPE ---
DATE OF ADMISSION: 05/16/2019 At approximately 5:30 p.m. CHIEF COMPLAINT: Intractable back pain secondary to new metastatic disease. HISTORY OF PRESENT ILLNESS: Sophie is a 54-year-old woman who is employed at the [employer]. She has a history of ampullary pancreatic cancer dating back to 2008, for which she underwent a Whipple and subsequently underwent chemotherapy and radiation. She had subsequent relapse of her disease and was found to have a lung metastasis in 2014 and had been on several regimens of chemotherapy through her oncologist at [facility] in [facility]. She has not had any chemotherapy for approximately a year, as she wanted a break. She also has a history of peptic ulcer disease with perforated viscus in the past secondary to chronic nonsteroidal anti-inflammatory drugs (NSAIDs) use. She also has associated pancreatic insufficiency. The patient had started experiencing abdominal pain with associated nausea, vomiting, and back pain over the past several days. She initially though it was a recurrence of pancreatitis. She had sought attention at her local oncologist's office, and imaging was done today of the thoracic spine, and she was found to have new metastatic disease to her thoracic spine. In addition, she was found to have elevated liver function tests consisting of significantly elevated alkaline phosphatase, likely credit representative of her metastatic disease as well as AST and ALT. The remainder of her labs done as an outpatient are unremarkable. White count 14.3, hemoglobin 13.5, hematocrit 40.7, platelet count of 220. Sodium 134, potassium 3.8, chloride 98, bicarbonate 25, anion gap 11, BUN 12, creatinine 0.86, glucose 105, calcium 9.2, magnesium 2. Total bilirubin is 5.9, AST is 143, ALT is 358, alkaline phosphatase is 951. ALLERGIES: DILAUDID, which is more of an adverse reaction that causes her to feel quite weak. HOME MEDICATIONS: - dexamethasone 4 mg taken following chemotherapy - Lactobacillus - Creon - Protonix 40 mg twice a day - Compazine - Tylenol as needed PAST MEDICAL HISTORY: Notable for: 1. Ampullary pancreatic cancer with metastases to the lung as well as now the thoracic spine. 2. Peptic ulcer disease. 3. Pancreatic insufficiency. PAST SURGICAL HISTORY: Notable for: 1. Whipple. 2. Exploratory laparotomy. SOCIAL HISTORY: Patient does not smoke. Does not use drugs or tobacco. She does not have a medical order for life-sustaining treatment (MOLST) form but lists her as the surrogate medical decision maker. She will be a full code. FAMILY HISTORY: Asked but is noncontributory. REVIEW OF SYSTEMS: Positive for nausea, vomiting. No hematochezia. No hematemesis. No melena. No present abdominal pain at this time. Remainder of review of systems reviewed with the patient is negative. PHYSICAL EXAMINATION: Patient's temperature is 98.7, pulse 88, respirations 19, blood pressure 142/72, oxygen saturation 97% on room air. In general, the patient is alert and oriented times three. She is in moderate distress associated with her acute midthoracic pain. Her range of motion is limited secondary to the pain. Head normocephalic, atraumatic. Her pupils are without any chemosis. She does have scleral icterus. Oropharynx: Mucosa appears moist without any visible lesions. Her neck is supple. No palpable lymphadenopathy in the cervical or supraclavicular distributions. Trache is midline. Lung sounds are appreciated bilaterally without rales, wheezing, or rhonchi. Heart: S1, S2. No audible murmurs or gallops. Her abdomen is soft, scaphoid in appearance, nontender, nondistended. She has active bowel sounds. Extremities are without any cyanosis, clubbing, or edema. Dorsalis pedis pulses are 2+ and symmetric. Neurologic: Cranial nerves II-XII grossly intact. Patient has no lower extremity weakness. Exam is limited secondary to her pain. Outpatient labs have been reviewed above. IMAGING STUDY done today consisted of a thoracic spine MRI. The findings are abnormal marrow signal at T12, extending into the left pedicle and posterior right side of T6 extending into the right pedicle and posterior elements, which is T1 dark, STIR bright enhancing post contrast consistent with metastatic disease. Spinal cord shows normal signal. No cord compression. No significant disc disease. No significant spinal canal stenosis. Multiple pulmonary parenchymal nodules, including a large mass at the left lung base, measuring approximately 6 cm, consistent with metastatic disease. IMPRESSION: 1. Acute malignant back pain secondary to known metastatic pancreatic carcinoma. 2. Elevated transaminase levels. 3. History of peptic ulcer disease. PLAN: Patient will be admitted as a direct admit to the general medical floor. She will be treated with intravenous (IV) morphine 2 mg every 2 hours as needed, oxycodone 10 mg every [address] a Lidoderm patch. She will receive lactated Ringer's (LR) with dextrose at about 100 mL an hour. We will resume her diet as tolerated. We will obtain an ultrasound of her right upper quadrant to delineate whether there is any underlying biliary disease consistent with obstruction based on her elevated pattern of labs. Patient will be continued on the majority of her home medications with the exception of her dexamethasone for now. She will be a full code. She will be placed on Lovenox and thromboembolic deterrents (TEDs) for deep vein thrombosis (DVT) prophylaxis.
--- NOTE | 2019-05-18 21:58 | DSES ---
DATE OF ADMISSION: 05/16/2019 DATE OF DISCHARGE: 05/17/2019 DISCHARGE DIAGNOSES: 1. Acute back pain secondary to a new metastatic pancreatic cancer to thoracic vertebrae. 2. Abdominal pain with nausea and vomiting, possibly secondary to pancreatic duct stricture versus possible common bile duct obstruction. 3. Peptic ulcer disease. 4. Metastatic pancreatic cancer to the lungs. PROCEDURES PERFORMED DURING HOSPITALIZATION: None. CONSULTANTS ON THE CASE: None. DISPOSITION: Patient is discharged home so that she can travel to [facility] in [facility] so she can be admitted at that hospital and evaluated by her primary oncologist for further evaluation of her elevated bilirubin level. CONDITION AT DISCHARGE: Stable. DISCHARGE MEDICATIONS: Conjugated estrogen, Flexeril, gabapentin, Lactobacillus, pancreatic enzymes, and Protonix. RELEVANT LABORATORY DATA: White count 6.4, hemoglobin 11.4, hematocrit 36, platelet count 173. INR is 1.04, PT is 13.3. Sodium is 136, potassium 3.7, chloride 104, bicarbonate 27, BUN 7, creatinine 0.62, glucose 134, calcium 8.8. Total bilirubin is down today to 4.3 from 5.9 yesterday. AST is 74, which is improved from AST of 142 yesterday. ALT is 233, which is also improved this morning. Alkaline phosphatase is also down at 861. Alkaline phosphatase isoenzyme is pending. Total protein 6.4, albumin is 2.8. RELEVANT IMAGING STUDIES: MRCP: Please reference report for details, but impression: There has been a cholecystectomy with diffuse pancreatic atrophy, dilated pancreatic duct in the body tail. Low signal focus measuring 6 mm in the proximal common duct. Appears to represent a source of obstruction, likely representing a calculus. Spiculated contour of the pancreatic head and neck region. May correspond to the known pancreatic carcinoma verus postoperative scarring. Pneumophila, likely related to prior surgical bypass. Irregular contour of the common bile duct with narrowing at the origin in the right and left pancreatic ducts. May represent strictures, either related to pancreatic carcinoma or prior inflammatory disease. 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 Four probable metastatic lesions at T9, T10, and T11 vertebral bodies. HOSPITAL COURSE: Sophie Parish is a 54-year-old woman who has history of metastatic pancreatic cancer, who had presented to the hospital after developing nausea, vomiting, and abdominal pain with associated acute back pain. She was seen in the outpatient setting by a local oncologist, who ordered an MRI of her thoracic spine. This indicated that she had several new metastatic lesions to the thoracic vertebrae as outlined above. Because her pain was uncontrolled, she was admitted to the hospital. Outpatient labs also indicated that she had an elevation in her bilirubin of 5.9 and elevated alkaline phosphatase at 951 with corresponding increases in ALT and AST levels also. On admission patient had no palpable abdominal pain. She was only complaining of back pain. She was treated with intravenous (IV) morphine as well as oxycodone due to her elevated transaminase levels. Clinically, she had some relief of her pain. She was able to take a diet this morning without any intractable nausea and vomiting. Because her numbers were improving, I felt that she could be safely discharged and travel [place] to see her primary oncologist. Her primary oncologist was concerned and had contacted her and recommended that she travel down there to be admitted and evaluated. We were unable to do an endoscopic retrograde cholangiopancreatography (ERCP) here secondary to previous history of Whipple procedure in the past. At the time of discharge, patient is afebrile. Vital signs are stable. She was discharged in stable condition. During this hospitalization I did give her a dose of IV Rocephin, which she received at approximately 8 p.m. on 05/16/2019. A total of 30 minutes was spent completing all discharge paperwork.
[2019-05-19] MEDS ORDERED: ESTROGENS VAGINAL CREAM 30GM PV SCH (09:00)
== END 2019-05-17 11:25 | disposition home or self-care (01) | DRG 861 ==
LOC: M MSPAV 17:22
PROVIDERS: ADMIT Internal Medicine; ATTEND Internal Medicine
DX: G89.3 Neoplasm related pain (acute) (chronic) (principal); C78.00 Secondary malignant neoplasm of unspecified lung; C79.51 Secondary malignant neoplasm of bone; C25.9 Malignant neoplasm of pancreas, unspecified; K86.89 Other specified diseases of pancreas; M54.9 Dorsalgia, unspecified; Z92.21 Personal history of antineoplastic chemotherapy; Z92.3 Personal history of irradiation; Z88.6 Allergy status to analgesic agent; Z79.899 Other long term (current) drug therapy; K27.9 Peptic ulcer, site unspecified, unspecified as acute or chronic, without hemorrhage or perforation; Z90.49 Acquired absence of other specified parts of digestive tract

== ENCOUNTER → 2019-05-16 | Outpatient (CLI) | payer BC ==
[~2019-05-16] MED LIST changes: +GASTROGRAFIN SOLUTION 30ML (Q9963) As Ordered ONE; +ISOVUE-370 76% 100ML VIAL (Q9967) As Ordered ONE
[2019-05-16 15:02] LABS: HEMATOCRIT 40.7 % (36.0-47.0); HEMOGLOBIN 13.5 g/dl (12.0-15.5); MEAN CORPUSCULAR HEMOGLOBIN 28.4 pg (27.0-33.0); MEAN CORPUSCULAR HGB CONC 33.2 g/dl (32.0-36.5); MEAN CORPUSCULAR VOLUME 85.7 fl (80.0-96.0); PLATELET COUNT, AUTOMATED 220 10^3/uL (150-450); RED BLOOD COUNT 4.75 10^6/uL (4.00-5.40); WHITE BLOOD COUNT 14.3 10^3/uL (4.0-10.0)
[2019-05-16 16:05] LABS: ALBUMIN 3.7 GM/DL (3.2-5.2); ALT/SGPT 358 U/L (12-78); AMYLASE 33 U/L (25-115); BILIRUBIN,TOTAL 5.9 MG/DL (0.2-1.0); BLOOD UREA NITROGEN 12 MG/DL (7-18); CA19-9 TUMOR MARKER,CARBOHYDRA 539.5 U/ML (<35.0); CALCIUM LEVEL 9.2 MG/DL (8.5-10.1); CARBON DIOXIDE LEVEL 25 MEQ/L (21-32); CHLORIDE LEVEL 98 MEQ/L (98-107); CREATININE FOR GFR 0.86 MG/DL (0.55-1.30); GLOMERULAR FILTRATION RATE > 60.0 (>51); GLUCOSE, FASTING 105 MG/DL (70-100); LIPASE 27 U/L (73-393); POTASSIUM SERUM 3.8 MEQ/L (3.5-5.1); SODIUM LEVEL 134 MEQ/L (136-145); TOTAL PROTEIN 7.1 GM/DL (6.4-8.2)
--- NOTE | 2019-05-16 17:56 | REP ---
CT CHEST WITH IV CONTRAST: TECHNIQUE: Axial contrast enhanced images from the thoracic inlet to the upper abdomen using 100 mL Isovue 370 intravenous contrast material with multiplanar reformations. COMPARISON: 06/13/2018 The lungs show multiple innumerable nodules bilaterally diffusely. When compared to the prior study of 06/13/2018 they have increased in size and number. Most are spiculated. The largest is in the left lower lobe medially with an extensive contiguity with the adjacent posteromedial left pleural surface. This measures approximately 6.5 x 4.8 cm. There is no axillary adenopathy. No mediastinal adenopathy is seen. Heart is normal in size. Thoracic aorta is normal in caliber. There is no pleural or pericardial effusion. There is a heterogeneous bone lesion in the T12 vertebral body as seen on the recent MRI 05/14/2019 consistent with a metastatic lesion. No other osseous lesion is seen of the visualized osseous structures. IMPRESSION: Multiple innumerable diffuse pulmonary nodules as discussed above consistent with metastatic disease. These have increased in size and number when compared to the prior study 06/13/2018. The largest is in the left lower lobe medially with extensive contiguity of the medial pleural surface in this region. Bone lesion of T12 vertebral body noted, as seen on the recent MRI of the thoracic spine 05/14/2019. Electronically Signed by Vish Bradley MD 05/21/2019 05:00 P
--- NOTE | 2019-05-16 18:59 | REP ---
CT ABDOMEN AND PELVIS WITH ORAL AND IV CONTRAST: TECHNIQUE: Axial contrast enhanced images from the lung bases to the pubic symphysis using 100 mL Isovue 370 intravenous contrast material with multiplanar reformations. COMPARISON: Prior study 06/13/2018. Liver and spleen are again essentially normal in appearance with no new lesion. There is pneumobilia again seen, as on prior study, with postsurgical configuration of stomach and proximal small bowel in the upper abdomen. Scattered metallic clips and sutures are seen in this region. Adrenal glands are normal. No pancreatic mass is seen. There is stable pancreatic ductal dilatation. Calcification in the pancreas anterior to the proximal portal vein is again noted, as on prior study. It is about 12 mm maximally, unchanged. The kidneys are normal. There is no hydronephrosis. Subcentimeter periaortic lymph nodes are nonspecific with no significant adenopathy seen in the abdomen or pelvis. There is no free air or free fluid. There is no abdominal aortic aneurysm. No bowel wall thickening is seen. The urinary bladder appears unremarkable. No pelvic mass is seen. The uterus is deviated to the right. There is no ovarian mass identified. There are degenerative changes of the spine. Bone lesion of T12 is noted, as seen on prior MRI of 05/14/2019. No other bone lesion is seen of the visualized osseous structures of the abdomen and pelvis. IMPRESSION: No mass or adenopathy seen in the abdomen or pelvis. No acute findings. Electronically Signed by Vish Bradley MD 05/21/2019 05:01 P
== END ==
LOC: M RAD 14:04
PROVIDERS: ATTEND Internal Medicine Medical Oncology
DX: C25.9 Malignant neoplasm of pancreas, unspecified (principal)
CPT/HCPCS: 71260; 74177; 80053; 82150; 83690; 83735; 85027; 86301; Q9963; Q9967

== ENCOUNTER 2019-06-09 10:15 | Outpatient (RCR) | payer BC ==
--- NOTE | 2019-05-22 14:59 | RADONC ---
RADIATION ONCOLOGY SIMULATION NOTE DATE: 05/22/2019 CHART NUMBER: [id number] Sophie was taken to the CT scan for CT simulation of her spinal field. CT was accomplished without difficulty or discomfort. Radiation treatment planning is underway and radiation treatments will begin subsequently. An immobilization device was created and will be used throughout the course of treatment. It was created without difficulty or discomfort. I was physically present throughout the course of CT simulation.
--- NOTE | 2019-06-03 12:29 | RADONC ---
RADIATION ONCOLOGY DATE: 06/02/2019 CHART NUMBER: [id number] Ms Parish has the diagnosis of initially pancreatic CA many years ago underwent whipples about 10 years ago. She developed lung metastasis she has been on and off chemotherapy and recently developed spinal metastasis. She is receiving palliative radiation therapies to T spine. So far, she has received a dose of 1500 cGy in 300 cGy daily fractions. She said the pain intensity has not changed. REVIEW OF SYSTEMS: She denies nausea, vomiting night sweats, headache anxiety, depression or weight loss. The pain intensity is on a scale of 8-9. PHYSICAL EXAMINATION: She weighs 129/8 pounds, blood pressure 125/78, pulse 96, respiration 16, temperature 97.8, oxygen saturation is 98% in room air. There are no palpable lymphadenopathies. There is no noticeable skin changes over the spine. There is no weakness of the extremities. ASSESSMENT/PLAN: Ms. Parish with a diagnosis of longstanding pancreatic CA with metastasis. She has been on and off chemotherapy since diagnosis. Now she has a new metastasis in the T spine. So far she is tolerating treatments well, however, the pain intensity remains to be the same. Radiation therapy will continue as planned. [facility]
[~2019-06-09 10:15] MED LIST changes: +ACET1TAB55 PO; +CYCL10TA PO; +ESTR62CR PV; +GABA-843 PO; +OXYC1CAP PO; +PROBCAP14 PO
--- NOTE | 2019-06-10 09:57 | RADONC ---
RADIATION ONCOLOGY TREATMENT SUMMARY DATE: 06/09/2019 CHART #: [id number] DIAGNOSIS: Adenocarcinoma of the ampulla. STAGE: Metastatic. ECOG PERFORMANCE STATUS: 0. TREATMENT SUMMARY: Ms. Parish is a delightful 54-year-old white female with the diagnosis of metastatic poorly differentiated adenocarcinoma of the ampulla who presented to us for consideration of palliative radiation therapy to the T6 vertebral body. We treated the patient to her spine from the levels of T5 through T7 for a dose of 3000 cGy delivered in 10 fractions of 300 cGy each over 14 elapsed days from 05/26/2019 through 06/09/2019. The patient's spine was treated on the linear accelerator utilizing a 6 MV photon beam via single posterior field prescribed to a depth of 6 cm. Ms. Parish tolerated her treatments quite well with no difficulties related to her radiation therapy. The patient is scheduled see me again in 1 month for further followup. She will also continue to be followed by her other physicians as well. cc: MD Khris Pascual MD Karen Williams, MD
[2019-06-11] MEDS ORDERED: OXYC1CAP PO (15:59)
== END 2019-06-14 ==
LOC: M ONCR 10:15
PROVIDERS: ATTEND Radiology Radiation Oncology
DX: C79.51 Secondary malignant neoplasm of bone (principal)

== ENCOUNTER → 2019-06-26 | Outpatient (CLI) | payer BC ==
[~2019-06-26] MED LIST changes: +FENT12DI8 TOP; +GABA-1171 PO; +GASTROGRAFIN SOLUTION 30ML (Q9963) As Ordered ONE; +ISOVUE-370 76% 100ML VIAL (Q9967) As Ordered ONE; +PROC25SU24 PR
--- NOTE | 2019-06-27 06:11 | REP ---
Clinical: Metastatic pancreatic carcinoma. Technique: Axial contrast enhanced images from the thoracic inlet to the upper abdomen with coronal and sagittal re-formations using 100 ml Isovue 370 intravenous contrast material. Comparison: 05/16/2019. Findings: Scattered innumerable metastatic lesions are noted throughout the bilateral lung murphy which have increased in quantity and size. Specifically, right upper lobe lesion at the level of the martinez measures 2.6 cm AP diameter and previously measured 2.3 a centimeters AP diameter at the same level while a left upper lobe lesion measures 2.4 x 2.2 cm maximal diameter and previously measured 2.0 x 1.9 cm maximal diameter at the same level. Largest mass involving the medial left lower lobe currently measures 5.6 x 5.4 cm centimeters maximal diameter and previously measured 5.1 x 4.7 cm maximal diameter. New small left pleural effusion is now identified. No pneumothorax. Tracheobronchial tree is grossly patent. Right hilar lymph node measures 1.3 cm diameter. No further significant adenopathy noted. Thoracic aorta, pulmonary vasculature and heart/pericardium appear normal. [id number] identified with tip in the SVC. Musculoskeletal structures are intact without focal abnormality. Impression: Findings suggest increasing metastatic load including new small left pleural effusion. Electronically Signed by Espinoza Paris MD 06/27/2019 06:02 A
--- NOTE | 2019-06-27 06:24 | REP ---
Clinical: Metastatic pancreatic carcinoma. Technique: Axial contrast enhanced images from the lung bases to the pubic symphysis using oral (per protocol) and 100 ml Isovue 370 intravenous contrast material with delayed images of the abdomen as well as coronal and sagittal re-formations. Comparison: 05/16/2019. Findings: Liver, spleen, bilateral adrenal glands and kidneys appear normal. Pancreatic ductal dilatation and ductal calcifications remain stable. Postsurgical changes in the upper abdomen with mild stable pneumobilia again noted. No evidence for bowel obstruction or acute inflammatory process. Pelvis demonstrates normal bladder and age-appropriate uterus/adnexa. Abdominal aorta and vasculature appear normal. No ascites. No obvious adenopathy or abdominopelvic mass lesion. Musculoskeletal structures are intact without focal osseous abnormality. Impression: 1. No evidence for metastatic disease involving the abdomen/pelvis. Specifically, no ascites, adenopathy, inflammatory stranding, or mass lesion appreciated. 2. Stable postsurgical changes in the upper abdomen. 3. Stable appearance to the pancreas. 4. Obvious pulmonary metastatic disease. Electronically Signed by Espinoza Paris MD 06/27/2019 06:14 A
== END ==
LOC: M RAD 15:26
PROVIDERS: ATTEND Internal Medicine Medical Oncology
DX: C78.00 Secondary malignant neoplasm of unspecified lung (principal); J90 Pleural effusion, not elsewhere classified; C24.1 Malignant neoplasm of ampulla of Vater; Z95.9 Presence of cardiac and vascular implant and graft, unspecified
CPT/HCPCS: 71260; 74177; Q9963; Q9967

== ENCOUNTER → 2019-07-08 | Outpatient (CLI) | payer BC ==
[~2019-07-08] MED LIST changes: +DECA4TAB PO; -GASTROGRAFIN SOLUTION 30ML (Q9963) As Ordered ONE; -ISOVUE-370 76% 100ML VIAL (Q9967) As Ordered ONE
--- NOTE | 2019-07-09 09:55 | RADONC ---
RADIATION ONCOLOGY CONSULTATION NOTE DATE: 07/08/2019 CHART NUMBER: [id number] DIAGNOSIS: Adenocarcinoma of the ampulla. STAGE: IV, metastatic. ECOG PERFORMANCE STATUS: 1 CONSULTATION NOTE: Sophie is a truly delightful 54-year-old white female, who is well-known to our department as well as me personally for many years. The patient has been treated by us 11 years ago for adenocarcinoma of the ampulla and most recently completed a course of external beam radiation therapy on 06/09/2019 to her vertebral bodies from the levels of T5-C7 for a dose of 3000 cGy in 10 fractions of 300 cGy each. More recently, the patient reports that she has been having headaches. She says they have been worsening over time. MRIs of the brain as well as cervical spine were done on 07/08/2019. They revealed a 2.2 cm new heterogeneous enhancing mass in the left occipital lobe with mild adjacent edema. In addition, the CT of the spine revealed a 3-4 mm focus in the right central jovan, which was also suggestive of early metastatic disease. The patient has initiated Decadron consisting of 4 mg b.i.d. and is presenting to me for discussion of palliative radiation therapy to the brain. REVIEW OF SYSTEMS: The patient's review of systems is positive for her headaches. She also is continuing to have thoracic spine pain and is scheduled for another MRI of the thoracic spine. She reports that she stopped her narcotic pain medicine oxycodone. She stopped it because it caused her nausea and was significantly interfering with her quality of life. Overall the patient feels weak and reports that she is beginning to go downhill. PHYSICAL EXAMINATION: Physical examination was deferred secondary to COVID-19 precautions. ASSESSMENT: I have personally reviewed the MRI findings with our radiologist Dr. Cain. I have discussed with the patient the possibility of whole brain radiation therapy as a therapeutic option. We discussed logistics of treatment planning, simulation subsequent fractionated daily radiation treatments. I have scheduled her for simulation as soon as possible. In addition, I did discuss the possibility of gamma knife radiosurgery in [place] with her. In light of the patient's progressive and innumerable lung metastasis and overall deterioration, I believe starting her treatments a.s.a.p. will allow her to finish her brain radiation so that chemotherapy can be reinitiated faster than setting her first for gamma knife. As planned, we will be treating the whole brain and then if all goes well repeat an MRI in 2-3 months to see if there is any residual of the 2.2 cm lesion. If all is well at that point, we will get the expert opinion of possible gamma knife radiosurgery if indicated to any residual. Once again, the patient has had radiation on multiple occasions in the past and is willing to undergo these treatments. We will be coordinating her care with her medical oncologist, Dr. Yael Alan. cc: MD Khris Pascual MD Karen Williams, MD
== END ==
LOC: M ONCR 15:03
PROVIDERS: ATTEND Radiology Radiation Oncology
DX: Z08 Encounter for follow-up examination after completed treatment for malignant neoplasm (principal); R51 Headache; C24.1 Malignant neoplasm of ampulla of Vater; C78.00 Secondary malignant neoplasm of unspecified lung

== ENCOUNTER → 2019-07-08 | Outpatient (CLI) | payer BC ==
[~2019-07-08] MED LIST changes: +PROHANCE 279.3MG/ML 15ML VIAL (A9576) As Ordered ONE
--- NOTE | 2019-07-08 14:58 | REP ---
MRI BRAIN WITHOUT AND WITH IV GADOLINIUM: HISTORY: Metastatic ampullary carcinoma. Comparison MRI study of the brain is from February 26, 2015. Intractable headache, left greater than right with ear pain and subscapular pain. TECHNIQUE: Axial and sagittal imaging planes are utilized for T1 and T2-weighted scans. Sequences include spin-echo, fast spin echo, FLAIR, and diffusion weighted sequences. GADOLINIUM ENHANCEMENT DOSE: 11 mL of intravenous ProHance. MRI FINDINGS: There is a new 2.2 cm rounded mass in the left occipital lobe abutting the posterior aspect of the tentorium. This shows heterogeneous enhancement postcontrast and mild surrounding T2 edema. It is new when compared with the 2015 prior study. A meningioma could conceivably have this appearance however given the patient's history and the fact that it is new from the study in 2014, an intracranial metastasis is felt to be more likely. No other abnormal intracranial enhancement is seen. No other intracranial mass lesion is observed. No abnormal leptomeningeal enhancement is appreciated. Diffusion weighted scans show no evidence of restricted diffusion. There are minimal small vessel changes again noted on FLAIR images which are unchanged. On review of today's MR images of the cervical spine, there is a focus of enhancement in the right side of the jovan suspicious for a second metastatic lesion. This is less than 5 mm in diameter. IMPRESSION: There is a 2.2 cm new heterogeneously enhancing mass in the left occipital lobe with mild adjacent edema consistent with a intracranial metastasis. A second 5 mm focus of subtle contrast enhancement is seen in the right jovan. This is suspicious for a second metastatic site. Electronically Signed by Marcus Cain MD 07/08/2019 03:03 P
--- NOTE | 2019-07-08 15:16 | REP ---
MRI CERVICAL SPINE WITHOUT AND WITH IV GADOLINIUM: HISTORY: Metastatic ampullary carcinoma the pancreas. Comparison is made with today's brain MRI images. No comparison cervical spine imaging. TECHNIQUE: Sagittal and axial T1 and T2-weighted scans are acquired in the usual fashion with and without fat saturation. Sequences include spin echo, turbo spin-echo, and STIR imaging sequences. GADOLINIUM ENHANCEMENT DOSE: 11 mL of intravenous ProHance. Cervical vertebral body heights are preserved. Alignment is normal. No bony destructive lesion is seen in the cervical spine. The cervical cord is normal in coarse, caliber and signal intensity on T1 and T2-weighted scans. There is degenerative disc disease at the C5-6 disc level with disc space narrowing, decreased disc space signal intensity, and diffuse posterior disc bulging. This bulging indents the ventral margin of the thecal sac and there is mild bilateral uncovertebral spurring. This is a little more prominent on the left neural foramen than the right at C5-6. No other focal disc protrusion or significant degenerative disc disease is seen in the cervical spine. Postcontrast images demonstrate a focus of apparent enhancement measuring 3-4 mm in size in the right central jovan which cannot be appreciated on today's MRI study. The cervical spine images are slightly thinner sections and I suspect a early enhancing metastasis in this location in the jovan. IMPRESSION: 1. Degenerative disc disease with diffuse disc bulging and mild bilateral neural foraminal narrowing from uncovertebral spurring, left greater than right, at C5-6.2. 2. There is a 3-4 mm focus of enhancement in the right central jovan noted incidentally on C-spine images suggestive of a early enhancing metastatic focus. This it is less well appreciated on brain MRI images. Electronically Signed by Marcus Cain MD 07/08/2019 03:35 P
== END ==
LOC: M RAD 11:39
PROVIDERS: ATTEND Internal Medicine Medical Oncology
DX: R51 Headache (principal); C24.1 Malignant neoplasm of ampulla of Vater; M54.89 Other dorsalgia

== ENCOUNTER → 2019-07-09 | Outpatient (CLI) | payer BC ==
--- NOTE | 2019-07-09 10:10 | REP ---
MRI THORACIC SPINE WITHOUT AND WITH IV GADOLINIUM: HISTORY: Metastatic ampullary carcinoma. Comparison MRI thoracic spine May 14, 2019. TECHNIQUE: Sagittal and axial T1 and T2-weighted scans are acquired in the usual fashion with and without fat saturation. Sequences include spin echo, turbo spin-echo, and STIR imaging sequences. Gadolinium enhancement dose is 11 mL of intravenous ProHance. MRI FINDINGS: Thoracic vertebral body heights are preserved. Alignment is normal. Extensive multifocal pulmonary metastatic disease is noted bilaterally in the lungs. This includes a 6.3 cm mass in the left lower lobe. There is multifocal skeletal metastatic disease. Lesions are visible today at the T5, T6, T8, T12, and L2 levels. The L2 metastatic focus is new from the prior MRI study of the thoracic spine May 14, 2019. The T12 vertebral body lesion appears somewhat more extensive filling the vertebral body with low T1 signal intensity. The T6 vertebral body lesion is larger when compared with the prior study. There is some early ventral epidural disease with contrast enhancement at the posterior cortex of the T12 and at the posterior cortex of the L2 lesions consistent with early epidural extension. No cord compression or central canal stenosis is seen. There are two left posterior rib lesions visible involving the left posterior 6th rib and the left posterior 7th rib. There is extensive extra osseous soft tissue density at the 6th rib metastasis. There is abnormal signal intensity indicating a small metastatic focus on the left at T5 involving the transverse process. There is also a small new lesion involving the spinous process of the T8 vertebral body. The T5 transverse process lesion, the posterior spinous process lesion at T8, and the left 7th rib lesion are new when compared with the April study. The extraosseous soft tissue involvement around the left 6th rib metastasis has progressed. IMPRESSION: Progressive skeletal metastatic disease with new sites of involvement in the L2 vertebral body, the left transverse process at T5, and spinous process at T8 , and the left 7th rib posteriorly. There is mild but new ventral epidural involvement at T12 and L2. No cord compression is seen. The previously noted lesions at T6, T12, and the left posterior 6th rib have progressed in the interval since May 14, 2019. Electronically Signed by Marcus Cain MD 07/09/2019 11:28 A
== END ==
LOC: M RAD 08:06
PROVIDERS: ATTEND Internal Medicine Medical Oncology
DX: C24.1 Malignant neoplasm of ampulla of Vater (principal); C79.51 Secondary malignant neoplasm of bone
CPT/HCPCS: 72157; A9576

== ENCOUNTER → 2019-07-15 | Outpatient (RCR) | payer BC ==
--- NOTE | 2019-07-10 14:30 | RADONC ---
RADIATION ONCOLOGY SIMULATION NOTE DATE: 07/10/2019 CHART #: [id number] Ms. Parish was taken to the CT scan for CT simulation of her brain field as well as CT simulation of her lower spine field. CT was accomplished without difficulty or discomfort. Radiation treatment planning is underway and radiation treatments will begin subsequently. Immobilization devices were created and were with created without difficulty or discomfort. They will be used throughout the course of treatment. I was physically present throughout the course of CT simulation. Addendum: I have reviewed all the patient's previous RT records. The Lower Thoracic and Lumbar spines were included in her original treatment murphy from 11 years ago. The spinal cord as were as small bowel are at tolerance. Therefore we are unable to treat the present spinal disease. [facility]
--- NOTE | 2019-07-10 22:43 | MEDONC ---
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 CURRENT THERAPY Sophie is scheduled to begin FOLFIRI, however, now postponed due to newly discovered intracranial metastases, progressive thoracic spine metastases. INTERVAL HISTORY 1. Sophie asks if ibuprofen can be given ME (per rectum). It cannot, but Toradol is an option and intramuscular injection. I checked with pharmacy, [facility] felt more comfortable with a 30 rather than 60 mg dose due to Sophie's intracranial metastases and the risk of bleeding with high-dose Toradol. I discussed with Sophie and Santosh starting the Toradol, seeing if it works. We can continue it daily while she is here for radiation. She agreed to this. 2. We then discussed the timing of chemotherapy. Given she is starting radiation and with Dr. Mikaela broderick, will hold off starting FOLFIRI particularly during her first week. We can consider concurrent treatment but it's standard to defer chemotherapy until palliative radiation completed. 3. She will follow up with Dr. Enzo Jean next week for potential nerve block as the thoracic mass will not be part of the radiation field. 4. We discussed alternating with Tylenol if the 30 mg dose of Toradol does not hold through the night, and she and she and I can discuss in the morning whether this was adequate. IMPRESSION Recurrent ampullary adenocarcinoma with multifocal lung metastases, dominant posterior thoracic mass, progressive thoracic spine and ribs metastases, new left occipital mass causing ear pain and headache. Inability to tolerate opioids due to nausea. Persistent good performance status 0/1. PLAN 1. Sophie is on dexamethasone 4 mg t.i.d. now, after the twice daily dosing was insufficient to help her headache yesterday. 2. Toradol 30 mg IM today. If this offers good pain control will continue it daily Sunday through Sunday on radiation days. A delay must be introduced between the fifth day and resumption se on weekends we will hold off on Toradol. 3. Postpone start of FOLFIRI until at least the second week of radiation, potentially after radiation completed. 4. I later heard from Santosh the Toradol had helped Sophie. Will need to see how she does overnight. Possibly she could try Ultram though she strenuously wishes to avoid opioids. Time statement: 50 minutes [id number] with the patient more than 50% involving counseling, answering questions regarding the above issues. Electronically Signed by Yael Alan MD 07/11/2019 04:21 P DD: Yael Alan MD 07/10/2019 05:08 P DT: cece 07/10/2019 10:29 P CC: MD Vish Strauss MD Karen Williams, MD
[~2019-07-15] MED LIST changes: +ACET-683 PO; +IBUP-1022 PO; -PROHANCE 279.3MG/ML 15ML VIAL (A9576) As Ordered ONE
== END ==
LOC: M ONCR 07-10 10:23
PROVIDERS: ATTEND Radiology Radiation Oncology
DX: C79.51 Secondary malignant neoplasm of bone (principal); C79.31 Secondary malignant neoplasm of brain
CPT/HCPCS: 77290; 77307; 77334; 77387; 77412; G0463

== ENCOUNTER → 2019-07-18 | Outpatient (CLI) | payer BC ==
[~2019-07-18] MED LIST changes: +ISOVUE-370 76% 100ML VIAL (Q9967) As Ordered ONE; +LIDOCAINE 1% MDV 20ML VIAL As Ordered ONE; +MIDAZOLAM INJ 2 MG/2 ML VIAL (J2250) As Ordered ONE; +MORPHINE 10 MG/ML 1ML VIAL (J2270) As Ordered ONE; +ONDANSETRON 4MG/2ML VIAL (J2405) As Ordered ONE; +PERCOCET 5MG/325MG TAB As Ordered ONE; +PROMETHAZINE INJ 25 MG/ML VIAL (J2550) As Ordered ONE; +diphenhydrAMINE 50MG/ML VIAL (J1200) As Ordered ONE; +fentaNYL 100 MCG/2 ML INJECTION (J3010) As Ordered ONE
--- NOTE | 2019-07-18 10:05 | POST-OPPD ---
Postoperative Procedure Note Date Of Procedure: Jul 18, 2019 Time Of Procedure: 10:03 PREOPERATIVE DIAGNOSIS: metastatic pancreatic cancer. left posterior thoracic met causing intractable pain POSTOPERATIVE DIAGNOSIS: same FINDINGS: same PROCEDURE: left posterior thoracic met cryoablation SURGEON: fly ANESTHESIA: mod sed ESTIMATED BLOOD LOSS: < 5 ml COMPLICATIONS: none POSTOPERATIVE CONDITION: stable GABE LEES MD Jul 18, 2019 10:05
--- NOTE | 2019-07-18 11:37 | REP ---
IR first CT guided soft tissue tumor Cryoablation. IR second CT-guided soft tissue tumor cryoablation. IR CT guided needle placement. IR moderate sedation. Clinical information: Localized metastatic deposits on the left posterior thorax causing intractable pain. Metastatic pancreatic cancer. Physician: Dr. Giraldo. Procedure: The patient was advised of the benefits, risks and alternatives of the procedure and informed consent was obtained. The time-out was performed with verification of the patient's name, MRN, site of procedure and type of procedure to be performed. The patient was positioned in the prone position on the CT table. The site was prepped and draped in the usual sterile fashion. Moderate sedation was performed by the physician including the presence of an independent trained observer who assisted in monitoring the patient's level of consciousness and physiologic status. Following the administration of Fentanyl and Versed, the physician spent 90 minutes of continuous face to face time with the patient. Preliminary CT demonstrates an approximately 4 x2 cm enhancing mass, associated with destructive changes in the posterior fifth left rib. A second smaller enhancing lesion is also identified above this rib. Tumor #1: The skin and expected tract were anesthetized with lidocaine. Using CT guidance, a 17 gauge cryoablation probe was advanced into the target lesion with intermittent CT guidance. A 10-minute freeze cycle was then performed. Into procedural CT demonstrates complete coverage of the tumor. An 8-minute thaw was then observed. A second freeze cycle was then performed including 10-minute freeze. This was followed by an 8 minute thaw. The needle was removed. Tumor #2 The skin and expected tract were anesthetized with lidocaine. Using CT guidance, a 17 gauge cryoablation probe was advanced into the second target lesion with intermittent CT guidance. A 10-minute freeze cycle was then performed. Into procedural CT demonstrates complete coverage of the tumor. An 8-minute thaw was then observed. A second freeze cycle was then performed including 10-minute freeze. This was followed by an 8 minute thaw. The cryoablation probe was removed. Final CT demonstrates no significant hematoma or pneumothorax. The puncture site was cleansed and a sterile dressing was applied. The patient tolerated the procedure well and was returned to PRU in stable condition. EBL: Less than 5 ml. Complications: None. Impression: 1. CT demonstrates two lesions in the left posterior thorax associated with adjacent rib destruction and pleural thickening. 2. Successful CT-guided cryoablation of two metastatic deposits in the left posterior thorax. Patient to follow up in IR clinic in 1 month. Thank you this referral. Cc Dr. Yael Parish. Cc Dr. Galarza. Electronically Signed by Hallie Giraldo MD 07/18/2019 11:36 A
[2019-07-18 12:55] VITALS: BP 122/71
== END ==
LOC: M IRPRO 06:39
PROVIDERS: ATTEND Radiology Diagnostic Radiology
DX: C79.89 Secondary malignant neoplasm of other specified sites (principal); C25.9 Malignant neoplasm of pancreas, unspecified
CPT/HCPCS: 17264; 77013; 99152; 99153; C2618; J1200; J2250; J2270; J2405; J3010; Q9967

== ENCOUNTER 2019-07-28 12:57 | Outpatient (RCR) | payer BC ==
--- NOTE | 2019-07-22 08:18 | RADONC ---
RADIATION ONCOLOGY PROGRESS NOTE: DATE: 07/21/2019 CHART NUMBER: [id number] Ms. Parish is presently at a dose of 1500 centigrade to her whole brain and is tolerating treatments quite well at this point with no complaints related to her radiation therapy. She is having no significant difficulties with regards to the brain. She reports that since interventional radiology procedure, her back pain has improved significantly as well although distal present. Physical Examination was deferred due to Covid 19 precautions. Ms. Parish is still tolerating treatments quite well and radiation will continue as scheduled. MTDD
--- NOTE | 2019-07-23 13:58 | MEDONC ---
MEDICAL ONCOLOGY FOLLOWUP / TREATMENT VISIT DATE OF SERVICE: 07/21/2019 DIAGNOSES: Refractory recurrent ampullary adenocarcinoma, with multifocal lung metastases, thoracic spine encroaching mass, newly detected intracranial metastases, skeletal involvement. CURRENT THERAPY: Sophie is here to begin palliative FOLFIRI, dose reduced. Currently completing second week of palliative radiation to brain; T12 and L2 sites with question of ventral epidural disease not amendable to radiation due to prior previously radiated field. TREATMENT HISTORY: Please see 06/27/2019 synopsis. INTERIM HISTORY Sophie continues radiation. She self reduced her Decadron to 2 mg (half 4 mg tablet) twice daily. Her headache is not gone but getting better. She has completely stopped any more narcotic based medications. She tried but did not tolerate Toradol beyond one dose and stopped that, it caused some much pain she is in her kidneys. She took oxycodone but stopped that also. She underwent radioablation to two posterior thoracic sites of rib erosion associated with the large left lung mass and reports this helped somewhat. Overall, she says her pain is a little better controlled currently. We discussed the radiation and the epidural site as not amendable to radiation. I let her know I have contacted neurosurgery at [facility] should she become symptomatic from these sites. I reach Dr. Hunter Page, he referred me to Jabier Fernandes MD, with whom I have yet to speak but plan to connect, I have his cell phone. Lean and I talked over her starting the FOLFIRI. She is concerned about side effects, understandably as she had severe side effects previously but is willing to go forward. This is with her [facility] doctor's recommendation, Dr. Gannon. BRIEF REVIEW OF SYSTEMS: Sophie denies fevers, chills, new cough, new shortness of breath, new leg swelling or cramping. She has some back pain, which is unresolved but possibly slightly better. Her headache involving her left side of her head is somewhat better. Her appetite remains poor. She is doing her best taking calories. No extended spontaneous vomiting. No dysphagia per se. PHYSICAL EXAMINATION: VITAL SIGNS: Reviewed. Weight 53 kg (down net 2 kg in just under a month), temperature 97.5, blood pressure 114/86, heart rate 102, respiratory 20, O2 sat 98%. Remainder of physical exam deferred due to COVID-19 of crisis and no acute new physical signs or symptoms. LABORATORY DATA: WBC 19.9, hemoglobin 14.3, hematocrit 43, platelets 225, MCV 86. Sodium 132, potassium 3.3. Remainder of electrolytes unremarkable. Calcium 7.2, albumin 3.2, total bili 1.3, AST 39, ALT 54, alkaline phosphatase 317, CA19-9 1118. IMPRESSION: 1. Refractory recurrent ampullary adenocarcinoma with skeletal, lung, and intracranial metastases. - now undergoing whole brain RT for left parietal and jovan foci. - evidence of possible T12 and L2 epidural progression in a previously radiated field not amendable to reradiation, requiring close followup and potential neurosurgical intervention. 2. Anorexia, fatigue associated with poor appetite; Sophie agreed today to daily IV fluids if she was willing to come in for them. 3. Progressive CA19-9, today will be day 1 palliative chemotherapy after many months off systemic treatment. PLAN: 1. Day 1 cycle one. 2. Daily IV fluids 1 liter normal saline; the patient may refuse. 3. I will follow up with Dr. Fernandes of neuro spine oncology surgery regarding the T12-L2 sites. 4. 2-week interval return for day 1 cycle two FOLFIRI. 5. Continue dexamethasone at least twice daily. 6. I reached Dr. Fernandes of spine oncology at [facility]; his office will request images and he may try for a televisit with Sophie in next 24 hours; I alerted Sophie's Santosh to expect the call. Electronically Signed by Yael Alan MD 07/23/2019 04:13 P DD: Yael Alan MD 07/23/2019 11:01 A DT: [email or web address] 07/23/2019 11:16 A CC: MD Vish Rivera MD Michael A. Galgano, MD Karen Williams, MD
[~2019-07-28 12:57] MED LIST changes: +CYCL-707 PO; -CYCL10TA PO; -ISOVUE-370 76% 100ML VIAL (Q9967) As Ordered ONE; -LIDOCAINE 1% MDV 20ML VIAL As Ordered ONE; -MIDAZOLAM INJ 2 MG/2 ML VIAL (J2250) As Ordered ONE; -MORPHINE 10 MG/ML 1ML VIAL (J2270) As Ordered ONE; -ONDANSETRON 4MG/2ML VIAL (J2405) As Ordered ONE; -PERCOCET 5MG/325MG TAB As Ordered ONE; -PROMETHAZINE INJ 25 MG/ML VIAL (J2550) As Ordered ONE; -diphenhydrAMINE 50MG/ML VIAL (J1200) As Ordered ONE; -fentaNYL 100 MCG/2 ML INJECTION (J3010) As Ordered ONE
--- NOTE | 2019-07-28 13:41 | RADONC ---
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 ECOG PERFORMANCE STATUS: 2 TREATMENT SUMMARY: Sophie is a delightful 54-year-old white female with the diagnosis of widely metastatic adenocarcinoma, who presented to me for consideration of palliative radiation therapy to the brain for brain metastasis. We treated the patient to her whole brain for a total dose of 3000 cGy delivered in 10 fractions of 300 cGy each over 13 elapsed days from 07/15/2019 through 07/28/2019. The patient's brain was treated on a linear accelerator utilizing a 6 MV photon beam via parallel opposed lateral murphy. Ms. Parish tolerated her treatments quite well and was able to complete therapy as prescribed without interruption. I have scheduled the patient to see me again in 1 month for further followup. She will also continue to be followed by her other physicians as well. She is presently undergoing systemic therapy with her medical oncologist, Dr. Yael Alan. Dr. Alan is managing the patient's Decadron. cc: MD Khris Pascual MD Karen Williams, MD
[2019-08-04] MEDS ORDERED: PEPC10TA6 PO (08:27)
== END 2019-08-14 ==
LOC: M ONCR 12:57
PROVIDERS: ATTEND Radiology Radiation Oncology
DX: C79.31 Secondary malignant neoplasm of brain (principal); C79.51 Secondary malignant neoplasm of bone

== ENCOUNTER → 2019-08-27 | Outpatient (CLI) | payer BC ==
[~2019-08-27] MED LIST changes: +NEUR100C PO; +PEPC10TA6 PO
--- NOTE | 2019-09-01 11:12 | RADONC ---
RADIATION ONCOLOGY FOLLOWUP NOTE DATE: 08/27/2019 This is a telemedicine visit. The patient was informed of the risks including security breech, technological failure, inability to perform a comprehensive physical exam which could delay or prevent an accurate diagnosis, and potential complications from treatment decisions rendered over a telemedicine platform. The patient understands and consented to the use of telehealth services phone only. CHART #: [id number] DIAGNOSIS: Adenocarcinoma of the ampulla. STAGE: IV, metastatic. FOLLOWUP NOTE Sophie is a truly delightful 54-year-old white female who is presenting to us today 1 month post completion of palliative radiation therapy to her brain. The patient presents today reporting that she is doing quite well with no complaints at this time related to her radiation therapy. She is continuing with her chemotherapy and reports that she has been quite weak. She has no new difficulties. PHYSICAL EXAMINATION: Deferred at this time as this was a telephone consultation. ASSESSMENT: The patient is continuing with her systemic therapy at this time with her medical oncologist, Dr. Alan. In light of this, I have not set her up for any follow-ups in our department. We are available to her at anytime on a p.r.n. basis. She will soon be undergoing radiation scanning and evaluation to assess the efficacy of her chemotherapy. cc: MD Alice Jacques MD
== END ==
LOC: M ONCR 13:13
PROVIDERS: ATTEND Radiology Radiation Oncology
DX: C24.1 Malignant neoplasm of ampulla of Vater (principal); C79.51 Secondary malignant neoplasm of bone; C79.31 Secondary malignant neoplasm of brain

== ENCOUNTER → 2019-09-23 | Outpatient (CLI) | payer BC ==
[~2019-09-23] MED LIST changes: +PROHANCE 279.3MG/ML 5ML VIAL As Ordered ONE
--- NOTE | 2019-09-23 16:21 | REP ---
MRI thoracic spine: 09/23/2019. Indication: Metastatic pancreatic carcinoma. Technique: Multiplanar short and long tier sequences of the thoracic spine were performed including post gadolinium imaging. Comparison: 07/09/2019. Findings: Compared to the study from 3 months earlier, there has been progression of the axial skeletal metastases within the thoracic region. There are new subtle areas of abnormal signal now present within T7, T8, T9, T10 as well as T11. The abnormal signal within the T6 and T12 vertebrae is more pronounced with associated gadolinium enhancement at these levels. No pathologic compression fracture is present. No abnormal cord signal is detected. There is no evidence of cord compression or abnormal spinal canal gadolinium enhancement. Multiple pulmonary metastases are redemonstrated. Impression: Progression of the thoracic axial skeletal metastases without compression fracture. No significant metastatic disease within the spinal canal. Electronically Signed by Kailash Monroy DO 09/23/2019 04:13 P
--- NOTE | 2019-09-23 16:41 | REP ---
MRI lumbar spine: 09/23/2019. Indication: Metastatic pancreatic carcinoma. Technique: Multiplanar short lone tear sequences of the lumbar spine were performed including post gadolinium imaging. Comparison: There are no MRIs of the lumbar spine available for direct comparison. Comparison is made to thoracic spine MRI dated 07/09/2019. Findings: The abnormal signal and corresponding pathologic enhancement within the L1 vertebral body is more pronounced compared to the most recent study. Abnormal signal is additionally noted at each remaining lumbar vertebral level particularly at L3. There is associated pathologic enhancement within the L3 lesion. There are no focal disc herniations. Disc dessication, disc space narrowing and disc bulging are present at L2/L3, L4/L5 and talus extend the L3/L4. No areas of pathologic gadolinium enhancement are present within the spinal canal. There are no areas of nerve root impingement/significant spinal canal narrowing. No pathologic compression fractures are present. Impression: Multifocal metastases of the lumbar axial skeleton without compression fracture or significant narrowing of the spinal canal. Electronically Signed by Kailash Monroy DO 09/23/2019 04:33 P
== END ==
LOC: M RAD 12:22
PROVIDERS: ATTEND Internal Medicine Medical Oncology
DX: C24.1 Malignant neoplasm of ampulla of Vater (principal); C79.51 Secondary malignant neoplasm of bone
CPT/HCPCS: 72157; 72158; A9576

== ENCOUNTER → 2019-09-24 | Outpatient (CLI) | payer BC ==
[~2019-09-24] MED LIST changes: +GASTROGRAFIN SOLUTION 30ML (Q9963) As Ordered ONE; +ISOVUE-370 76% 100ML VIAL As Ordered ONE; -PROHANCE 279.3MG/ML 5ML VIAL As Ordered ONE
--- NOTE | 2019-09-25 07:21 | REP ---
Clinical: Metastatic pancreatic carcinoma. Technique: Axial contrast enhanced images from the thoracic inlet to the upper abdomen (followed by CT of the abdomen and pelvis) using 100 ml Isovue 370 intravenous contrast material. Coronal and sagittal re-formations obtained. Comparison: 06/26/2019. Findings: While innumerable scattered metastatic nodules, consolidations, and interstitial lymphangitic spread is again appreciated, the most pronounced areas of metastatic consolidation on the prior examination appear to be slightly decreased in size. Specifically, the largest lesion in the medial left lower lobe now measures approximately 4.4 x 4.7 cm maximal AP and transverse diameter and previously measured 5.4 x 5.6 cm at the same level. The largest lesion in the right upper lobe now measures roughly 2.1 cm maximal AP diameter and previously measured 2.6 cm maximal AP diameter at the same level. A small left pleural effusion is again noted and essentially unchanged. No significant bulky mediastinal or hilar adenopathy is identified. The tracheobronchial tree is relatively patent. There is no evidence for pneumothorax. Thoracic aorta, pulmonary vasculature and heart/pericardium remain relatively stable and grossly normal. Right-sided [id number] is again identified with tip in the SVC/right atrium. Evaluation of the musculoskeletal structures demonstrates increasing metastatic changes to the T12 and L2 vertebral bodies as compared to prior examination without pathologic compression fracture. Impression: 1. Innumerable metastatic lesions throughout the bilateral lung murphy with the most prominent areas of metastatic consolidation on current examination appearing slightly improved / decreased in size as compared to prior study. 2. Osseous metastatic lesions at T12 and L2 appear more progressive, but without pathologic compression fracture noted. Electronically Signed by Espinoza Paris MD 09/25/2019 07:11 A
--- NOTE | 2019-09-25 07:48 | REP ---
Clinical: Pancreatic carcinoma. Technique: Axial contrast enhanced images from the lung bases to the pubic symphysis using oral (per protocol) and 100 ml Isovue 370 intravenous contrast material with delayed images of the abdomen as well as coronal and sagittal re-formations. Comparison: 06/26/2019. Findings: Minimal amount of pneumobilia is again noted and essentially unchanged. Liver is relatively normal and without evidence for metastatic disease. Mild splenomegaly again noted and without focal splenic lesion identified. Chronic atrophic appearance to the pancreas with chronic ductal dilatation and intraductal calcification at the head of the pancreas remains unchanged. Postsurgical changes in the right upper quadrant consistent with prior Whipple procedure. Bilateral adrenal glands and kidneys are stable and within normal limits. The enteric system is without obstruction or acute inflammatory process mild elements of submucosal thickening involving the sigmoid colon are again noted and unchanged. Evaluation of the pelvis demonstrates normal bladder and age-appropriate uterus/adnexa. No ascites. No intraperitoneal or retroperitoneal adenopathy. No free air. Abdominal aorta and vasculature without aneurysm or dissection. Musculoskeletal structures demonstrate degenerative changes along with heterogeneous partially sclerotic deformities involving L1 and L2 as well as T12 consistent with progressive metastatic disease. No associated pathologic compression fracture. Impression: 1. Stable postsurgical changes in the upper abdomen along with small amount of stable pneumobilia. 2. Osseous metastatic changes involving L1, L2, and T12 without pathologic compression fracture. 3. No further evidence for metastatic disease or obvious recurrence involving the abdomen and pelvis. Electronically Signed by Espinoza Paris MD 09/25/2019 07:40 A
== END ==
LOC: M RAD 11:59
PROVIDERS: ATTEND Internal Medicine Medical Oncology
DX: C24.1 Malignant neoplasm of ampulla of Vater (principal); J90 Pleural effusion, not elsewhere classified; C77.2 Secondary and unspecified malignant neoplasm of intra-abdominal lymph nodes; C78.02 Secondary malignant neoplasm of left lung; C79.51 Secondary malignant neoplasm of bone
CPT/HCPCS: 71260; 74177; Q9963; Q9967

== ENCOUNTER → 2019-12-11 | Outpatient (CLI) | payer BC ==
[~2019-12-11] MED LIST changes: -GASTROGRAFIN SOLUTION 30ML (Q9963) As Ordered ONE; -ISOVUE-370 76% 100ML VIAL As Ordered ONE; +PROHANCE 279.3MG/ML 15ML VIAL As Ordered ONE
--- NOTE | 2019-12-11 13:51 | REPVR ---
PROCEDURE INFORMATION: Exam: MR Head Without and With Contrast Exam date and time: 12/11/2019 12:01 PM Age: 54 years old Clinical indication: Condition or disease; History of cancer (specify primary cancer site): ; Primary cancer: Pancreatic; Additional info: Eval for brain mets TECHNIQUE: Imaging protocol: MR of the head without and with intravenous contrast. Contrast material: PROHANCE; Contrast volume: 10 ml; Contrast route: INTRAVENOUS (IV); COMPARISON: 1. MRI-Brain W/O FOLL BY WITH 07/08/2019 11:56 AM 2. MRI-Brain W/O FOLL BY WITH 02/26/2015 12:38:51 PM FINDINGS: Brain: No acute infarct identified on the diffusion-weighted imaging. The T2 weighted imaging demonstrates a few punctate foci of increased signal intensity in the subcortical white matter most likely representing trace small vessel ischemic change. Decreased conspicuity of a medial left temporal region mass along the posterior aspect of the left tentorium. Difficult to determine whether this is parenchymal or extra-axial. This is currently best appreciated on the coronal imaging measuring 1.0 cm in transverse x 0.6 cm in craniocaudal dimension on image 24 of series 901. Previously on the coronal imaging this mass measured 1.5 x 2.0 cm. There is faint residual adjacent edema, decreased compared to prior. 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 No new enhancing intracranial lesions. Ventricles: The ventricles are stable in size. No ventriculomegaly. Bones/joints: Unremarkable. Sinuses: Retention cyst or polyp in the right maxillary sinus. Mastoid air cells: Trace bilateral mastoid effusions. Orbits: Unremarkable. Soft tissues: Unremarkable. IMPRESSION: Interval decrease in size of a left occipital region metastasis. No new metastases identified. Electronically signed by: Ju Giraldo On 12/11/2019 13:52:06 PM
== END ==
LOC: M RAD 11:11
PROVIDERS: ATTEND Internal Medicine Medical Oncology
DX: G93.6 Cerebral edema (principal); J34.1 Cyst and mucocele of nose and nasal sinus; C79.31 Secondary malignant neoplasm of brain
CPT/HCPCS: 70553; A9576

== ENCOUNTER → 2019-12-31 | Outpatient (CLI) | payer BC ==
--- NOTE | 2019-12-31 16:04 | REPVR ---
PROCEDURE INFORMATION: Exam: MR Lumbar Spine Without and With Contrast. Exam date and time: 12/31/2019 2:22 PM Age: 54 years old Clinical indication: Condition or disease; Cancer, metastatic (secondary site lumbar); Patient HX: Ampullary CA with mets; Additional info: Malignant tumor spine TECHNIQUE: Imaging protocol: Multiplanar magnetic resonance images of the lumbar spine without and with intravenous contrast. Contrast material: PROHANCE; Contrast volume: 10 ml; Contrast route: INTRAVENOUS (IV); COMPARISON: MRI-LS SPINE W/O FOLL WITH CON 09/23/2019 1:34 PM FINDINGS: Vertebra: Abnormal signal noted within the L1 and L3 vertebral body which has progressed since previous in this patient with known metastatic disease. Enhancement of present within the vertebral bodies on the contrast enhanced portion of the study. Loss of normal T2 weighted signal within the discs from L2 through L5 reflecting disc desiccation. Spinal cord: Normal signal. No cord compression. Conus posterior to T12. L1-L2: No significant disc disease. No significant spinal canal stenosis. No neural foraminal stenosis. L2-L3: Circumferential annular tear.. No significant spinal canal stenosis. No neural foraminal stenosis. L3-L4: No significant disc disease. Mild epidural enhancement Along the posterior margin of the L3 vertebral body that is unchanged. No significant spinal canal stenosis. No neural foraminal stenosis. L4-L5: Circumferential annulus bulge. Mild enhancement of the endplates to the left of midline likely degenerative. Mild central stenosis.. No neural foraminal stenosis. L5-S1: No significant disc disease. No significant spinal canal stenosis. No neural foraminal stenosis. Soft tissues: Unremarkable. IMPRESSION: 1. Metastatic disease at L1 and L3 which has progressed within those vertebral bodies since previous . Stable epidural enhancement posterior to L3. No new lesions. No cord compression 2. Circumferential annulus bulge with annulus tear at L4-L5. No change Electronically signed by: Jessica Elkins On 12/31/2019 16:04:07 PM
--- NOTE | 2019-12-31 16:24 | REPVR ---
PROCEDURE INFORMATION: Exam: MR Thoracic Spine Without and With Contrast Exam date and time: 12/31/2019 2:22 PM Age: 54 years old Clinical indication: Condition or disease; Cancer, metastatic/secondary to thoracic bone; Patient HX: Ampullary CA with mets; Additional info: Malignant tumor spine TECHNIQUE: Imaging protocol: Multiplanar magnetic resonance images of the thoracic spine without and with intravenous contrast. Contrast material: PROHANCE; Contrast volume: 10 ml; Contrast route: INTRAVENOUS (IV); COMPARISON: MRI-T SPINE W/O FOLL WITH CON 09/23/2019 1:34 PM FINDINGS: Vertebrae: Abnormal signal within the T4 (to the left of midline and into spinous process), T5 (vertebral body into spinous process, T6 (to the right of midline), T7 (posteriorly into the left and into spinous process.), T8 (right pedicle) and T11 vertebral bodies. . There is a transitional vertebral body at S1. Epidural enhancement at T11. Enhancing soft tissue surrounding the exiting nerve roots at T3-4 on the left, T4-5 bilaterally, T5-6 bilaterally, T6-7 bilaterally, T7-8 to the left of midline and T11-12 particularly on the right Spinal cord: Normal signal. No cord compression. T1-T2: No significant disc disease. No significant spinal canal stenosis. T2-T3: No significant disc disease. No significant spinal canal stenosis. T3-T4: No significant disc disease. No significant spinal canal stenosis. T4-T5: No significant disc disease. No significant spinal canal stenosis. T5-T6: No significant disc disease. No significant spinal canal stenosis. T6-T7: No significant disc disease. No significant spinal canal stenosis. T7-T8: Small right posterolateral disc bulge with mild narrowing right lateral recess. No significant spinal canal stenosis. T8-T9: No significant disc disease. No significant spinal canal stenosis. T9-T10: No significant disc disease. No significant spinal canal stenosis. T10-T11: No significant disc disease. No significant spinal canal stenosis. T11-T12: No significant disc disease. No significant spinal canal stenosis. Soft tissues: Unremarkable. IMPRESSION: 1. Interval progression of metastatic disease to the thoracic spine. Stable epidural enhancement at T11. No evidence of cord compression. Enhancing soft tissue surrounding the exiting nerve root sleeves at several levels as described above. Electronically signed by: Jessica Elkins On 12/31/2019 16:23:47 PM
== END ==
LOC: M RAD 12:38
PROVIDERS: ATTEND Neurological Surgery
DX: C41.2 Malignant neoplasm of vertebral column (principal); R93.7 Abnormal findings on diagnostic imaging of other parts of musculoskeletal system
CPT/HCPCS: 72157; 72158; A9576

== ENCOUNTER → 2020-01-02 | Outpatient (CLI) | payer BC ==
[~2020-01-02] MED LIST changes: +GASTROGRAFIN SOLUTION 30ML (Q9963) As Ordered ONE; +ISOVUE-370 76% 100ML VIAL As Ordered ONE; -PROHANCE 279.3MG/ML 15ML VIAL As Ordered ONE
--- NOTE | 2020-01-13 16:01 | REP ---
HISTORY: Ampullary carcinoma with metastasis. COMPARISON: CT abdomen and pelvis 09/24/2019. CT CONTRAST DOSE: 100 mL of intravenous Isovue-[address] FINDINGS: Digital preliminary director of scout work radiograph demonstrates an unremarkable bowel gas pattern. There is extensive pulmonary parenchymal disease. An Infusaport catheter is noted on the right. There is a small left pleural effusion. Multiple pulmonary nodules are noted bilaterally. These will be discussed in greater detail on the chest CT report. No focal liver or spleen lesion is visible today. The patient is status post Whipple procedure and there is stable mild pneumobilia. Surgical clips are noted in the gallbladder fossa. There is mild diffuse pancreatic atrophy and [id number] dilation of the pancreatic duct unchanged from prior study. There is a small accessory splenule. Kidneys enhance symmetrically and are morphologically intact. No retroperitoneal mass or adenopathy is seen. Small and large bowel loops are unremarkable. No mesenteric mass or adenopathy is seen. No free fluid is noted. Uterus is tipped to the right and appears somewhat retroflexed. On bone window settings, the previously noted sclerotic metastatic sites are again seen in the T11, L1, and L3 vertebral bodies. The sclerotic changes associated with these lesions appear somewhat more extensive at these levels, but no new vertebral body level involvement is appreciated. There is an area of metastatic sclerosis change in the ischium on the left, which was not apparent on the 09/24/2019 study. This may be a small new metastatic site. This measures approximately 19 mm. There is a sclerotic lesion in the proximal superior pubic ramus on the left as well measuring 10 mm. This is stable. IMPRESSION: The blastic metastatic lesions involving T12, L1, and L3 appear a little more extensive, but there is no evidence of pathologic fracture. There is a 19 mm sclerotic lesion in the ischium, which was not previously apparent consistent with a new metastatic site. Otherwise, unchanged. MTDD
--- NOTE | 2020-01-13 16:02 | REP ---
CT CHEST WITH INTRAVENOUS (IV) CONTRAST HISTORY: Ampullary carcinoma with metastatic disease. COMPARISON: Prior chest CT the most recent which is from 09/24/2019. CT CONTRAST DOSE: 100 mL of intravenous Isovue-[address] FINDINGS: There is evidence of intrathoracic progressive disease. There is a slight increase in size of the small left pleural effusion. The largest confluent metastatic lesion in the left lower lobe posterobasal segment has increased to transverse diameter of 4.2 x 5.7 cm today, previously 4.4 x 4.7 cm. This opacity has become confluent with an adjacent metastatic site, which is also enlarged currently measuring 2.8 x 2.5 cm, previously 2.5 x 2.3 cm. There are several of the smaller spiculated metastatic sites, which have become a little more solid in appearance. There are multiple metastatic nodules, which are larger today compared to the prior study. Many are unchanged. No definitely new metastatic lesion is seen; however, the lesions are innumerable. There is no evidence of hilar or mediastinal mass or adenopathy. No right pleural effusion is seen. On bone window settings, there are sclerotic metastatic lesions involving the T11, T7, and T5 vertebral body without vertebral collapse. The sclerotic change in the T11 vertebral body is a bit more extensive. There is more left posterior element sclerosis compared to the prior study. At T7, there is involvement of the spinous process and lamina with sclerosis. There is left pedicle involvement at T7 as well. There is a fairly extensive area of sclerotic metastatic disease involving the posterior half of the T5 vertebral body. These changes are new. This extends into the posterior elements of T5. No collapse or obvious epidural extension is seen. There is considerable periosteal reaction and mineralization and sclerosis in the posterior left sixth and seventh ribs. I note that previous cryotherapy has been performed here and this may be post ablation change. It is a change from the prior CT, however. There is a new sclerotic lesion in the right rib cage involving rib number six. IMPRESSION: There is evidence of progressive intrathoracic and skeletal disease. MTDD
== END ==
LOC: M RAD 14:28
PROVIDERS: ATTEND Internal Medicine Medical Oncology
DX: C79.51 Secondary malignant neoplasm of bone (principal); C25.9 Malignant neoplasm of pancreas, unspecified
CPT/HCPCS: 71260; 74177; Q9963; Q9967

== ENCOUNTER → 2020-01-09 | Outpatient (CLI) | payer BC ==
[~2020-01-09] MED LIST changes: -GASTROGRAFIN SOLUTION 30ML (Q9963) As Ordered ONE; -ISOVUE-370 76% 100ML VIAL As Ordered ONE; +PROHANCE 279.3MG/ML 5ML VIAL As Ordered ONE
--- NOTE | 2020-01-13 16:03 | REP ---
MRI PELVIS WITH AND WITHOUT CONTRAST HISTORY: Metastatic ampullary cancer. Pelvic pain. COMPARISON: CT 01/02/2020. TECHNIQUE: Multiple sequences obtained in the axial, coronal, and sagittal planes prior to and following the intravenous administration of 10 mL ProHance. FINDINGS: As suggested on the recent CT, there is a bone lesion in the left ischium, which is hypointense on T1 and heterogeneous hyperintense on T2. This demonstrates heterogeneous enhancement with an element of periosteal enhancement. The findings are consistent with a metastatic bone lesion. This has a maximum diameter of about 3 cm. The suspected bone lesion in the left superior pubic ramus is also visualized, best visualization on T1-weighted images. This measures about 1 cm in diameter. A third metastatic lesion is seen in the left iliac bone medially, along the left sacroiliac joint. This demonstrates low signal on T1, high signal on T2, and demonstrates heterogeneous enhancement. This measures about 2 cm in diameter. No soft tissue masses are seen. There is no adenopathy in the pelvis. There is no other evidence of pelvic mass or free fluid. The uterus is small and deviated to the right of midline. I see no other abnormalities. Incidental note is made of a subcentimeter benign bone island in the right ischium. IMPRESSION: Three suspicious bone lesions most consistent with metastatic bone lesions, one is located in the left ischium measuring about 3 cm maximally, in the left superior pubic ramus measuring about 1 cm in diameter, and in the left iliac bone medially along the sacroiliac joint measuring about 2 cm in diameter. MTDD
== END ==
LOC: M RAD 15:13
PROVIDERS: ATTEND Internal Medicine Medical Oncology
DX: R93.5 Abnormal findings on diagnostic imaging of other abdominal regions, including retroperitoneum (principal); R10.2 Pelvic and perineal pain; Z85.068 Personal history of other malignant neoplasm of small intestine

== ENCOUNTER → 2020-01-22 | Outpatient (CLI) | payer BC ==
[~2020-01-22] MED LIST changes: -PROHANCE 279.3MG/ML 5ML VIAL As Ordered ONE
--- NOTE | 2020-01-22 10:35 | RADONC ---
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 Diagnosis/Treatment History Oncologic History T2N0M0, stage II ampullary adenocarcinoma diagnosed 2008 status post Whipple with Dr. Joseph Jose. Adjuvant gemcitabine 02/2009-07/2009, interrupted with adjuvant combined chemoradiation to 45 Gy in 25 fractions with capecitabine May 2009. History of pancreatitis and papillotomy (?) 2012. January 2015 lung metastases. Abraxane/gemcitabine 01/2015-08/2015. Maintenance Abraxane 09/2015-11/2015. Gemcitabine 11/2014-03/2016. FOLFOX 04/2016-11/2016. Treatment holiday 11/2016-04/2017. FOLFOX 04/2017-02/2018. FOLFIRI 02/2018 one cycle, poorly tolerated, discontinued. FOLFOX 03/2018-06/2018. Treatment holiday 06/2018-04/2019. Disease progression with multifocal lung metastases and dominant large left posteromedial pleural-based mass up to 6.7 cm, in addition to T6 and T12 site seen on 05/14/2019 MRI, T11 metastasis on CT 05/18/2019. [id number] following with Kurt Hwang MD at [facility] [place]. Palliative radiation T5-7, completed 06/10/2019. Whole-brain radiation 07/15/2019-07/28/2019. Thoracic cryoablation of L 6th rib metastatic focus 07/18/2019. Palliative FOLFIRI chemotherapy, day one, cycle one 07/21/2019. Major dose reduction due to prior difficulties tolerating this drug requiring G-CSF support. Interval History She reports that she is tolerating chemo well. Her energy level is poor. She is retired on permanent disability. She describes 2 dominant foci of pain, the left hip which includes a constant pain in the buttock and lateral hip as well as a radiating component down the left leg. It is 7/10 and limits her activities and is exacerbated by movement. The other is in the left superior back between the shoulder blade and the spine, she describes a "deep pain" there in a rib for which she underwent cryoablation which reduced her pain initially however, the pain has recrudesced, and is now 5/10 constant aching. She has additional pain in the low back which is not functionally limiting dull and constant. She has tried several narcotics which do help pain but are too sedating or nauseating for her liking. She has no local dedicated pain-management provider. Current Therapy FOLFIRI palliative Stage Stage IV ampullary adenocarcinoma Social History: Non-smoker Non-drinker Allergies / Meds Allergies: Coded Allergies: hydromorphone (Verified Adverse Reaction, Intermediate, NAUSEA/VOMITING, 07/12/18) Home Meds Active Scripts Pantoprazole Sodium (Protonix) 40 Mg Tab, 40 MG PO BID, #180 TAB 3 Refills Prov:SAULO ARBOLEDA MD 12/08/19 Gabapentin (Neurontin) 100 Mg Capsule, 2 CAP PO TID for 30 Days, #180 CAP Prov:Yael Alan MD 10/14/19 Pancreatic Enzymes (Creon 24,000 Units Capsule) 1 Each Capsule., 1 CAP PO TID for 90 Days, #270 CAP 5 Refills Prov:Yael Alan MD 07/10/19 Reported Medications Famotidine (Pepcid AC) 10 Mg Tablet, 10 MG PO DAILY for 30 Days, #30 TAB 08/04/19 Acetaminophen (Acetaminophen) 500 Mg Tablet, 1500 MG PO Q6H PRN for PAIN, TAB 07/18/19 Lactobacillus Acidophilus (Probiotic) 1 Each Capsule, 1 CAP PO DAILY, CAP 05/16/19 Review of Systems Review of Systems Constitutional: Reports: Weakness, Fatigue, Weight Loss; Denies: Fever, Malaise, Night Sweats Eyes: Denies: Pain, Vision change HEENT: Denies: Head Aches, Sinus Congestion Skin: Denies: Rash Pulmonary: Denies: Dyspnea, Cough, Pleuritic Chest Pain Cardiovascular: Denies: Chest Pain, Palpitations Gastrointestinal: Denies: Nausea, Vomiting, Abdominal Pain Genitourinary: Denies: Dysuria, Frequency Hematologic: Reports: Bruising; Denies: Petecchia Endocrine: Denies: Polydipsia, Polyphagia Musculoskeletal: Reports: Shoulder pain, Back pain, Leg pain, Midthoracic pain; Denies: Neck pain, Foot pain Neurological: Denies: Weakness, Numbness, Incoordination, Seizures Psych: Reports: Mood Normal; Denies: Anxiety Physical Examination Vital Signs Ht 66" Weight 112 lb T 98 P 92 RR 20 BP 131/81 O2 92% Fatigue 4 Pain 5 General Exam: Positive: Alert, Cooperative, No Acute Distress Eye Exam: Positive: PERRLA, EOMI ENT EXAM: Positive: Atraumatic Neck Exam: Positive: Supple Chest Exam: Positive: Clear to auscultation Heart Exam: Positive: Rate Normal, Regular Rhythm Abdomen Exam: Positive: Normal bowel sounds, Soft; Negative: Tenderness Extremity Exam: Negative: Edema Skin Exam: Positive: Nl turgor and temperature Neuro Exam: Positive: Normal Gait, Normal Speech, Strength at 5/5 X4 ext, Cranial Nerves 3-12 NL Psych Exam: Positive: Mental status NL, Mood NL Other Physical Findings There is mild TTP in the left hip soft tissues, there is no TTP over the length of the spine or in paraspinal soft tissues Diagnostic and Laboratory Diagnostic Review Radiologic images, relevant labs and pathology reports were personally reviewed and discussed with Ms. Parish. Assessment and Plan Impression Assessment Ms. 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 She describes 2 dominant pain foci, the left hip region in which there are several lesions in the left ischium, sacroiliac, and pubic bones, and the left posterior 6th rib, previously cryoablated by Dr. Soto. She also has disease in L1 and L3 vertebral bodies but I see no nerve root or spinal cord compression as such these are poor correlates for radicular symptoms in the left leg. Rather I think her pain in the left leg is all due to the left hip regional disease. We discussed treating the left hip with palliative RT 20 Gy in 5 fractions with AP/PA murphy. We also discussed treating the left posterior 6th and 7th ribs 20 Gy in 5 fractions concurrently. She has prior RT consisting of a single PA field to the T5-7 vertebral bodies 30 Gy in 10 fractions ini portions of the volume it was 120% hot. There will be some overlap of this previously treated field and the current target and out of need to respect spinal cord tolerance I will use VMAT to spare cord dose, this will also facilitate some lung sparing as well. I would do a daily kV to localize the new field. We reviewed the possible side effects, fatigue, skin reaction and pain flare among others. She agrees to proceed. Will simulate her in the next week. We also discussed referral to palliative care here as she has no local pain- management provider. She is amenable to this and I will facilitate referral. As a final note I reviewed her MRI brain from November given her history of brain metastases (ordered by Dr. Arboleda), I note no intracranial progression. I would recommend these be continued q3m while Ms. Parish is still pursuing active cancer- directed therapy. Performance Status ECOG 1 Plan 20 Gy in 5 fractions to the left hip and left posterior 6th & 7th ribs, the latter w/ VMAT due to direct overlap with previously treated T5-7 vertebral murphy Simulation in the next week Referral to palliative care Ms. Parish was encouraged to call with questions or concerns in the interim period. CATIE CHANEY MD Jan 22, 2020 10:35
== END ==
LOC: M ONCR 08:57
PROVIDERS: ATTEND General Practice
DX: C24.1 Malignant neoplasm of ampulla of Vater (principal); C79.51 Secondary malignant neoplasm of bone; C79.31 Secondary malignant neoplasm of brain

== ENCOUNTER 2020-02-11 11:43 | Outpatient (RCR) | payer BC | END 2020-02-14 | LOC: M ONCR 11:43 | PROVIDERS: ATTEND General Practice | DX: C79.51 Secondary malignant neoplasm of bone (principal) ==

== ENCOUNTER → 2020-03-26 | Outpatient (CLI) | payer BC ==
[~2020-03-26] MED LIST changes: +DEXA2TA PO
--- NOTE | 2020-03-26 17:36 | REP ---
INDICATION: SECONDARY MALIGNANT NEOPLASM OF BONE. COMPARISON: Comparison radiographs March 07, 2009.. Comparison is made with more recent pelvic MRI study January 09, 2020. TECHNIQUE: Single AP view of the pelvis. FINDINGS: There is a benign-appearing bone island in the right ischium. There is a ill-defined sclerotic lesion in the left ischium consistent with a skeletal metastatic site. This area measures approximately 4 cm in diameter. It corresponds to the largest metastatic lesion seen on January 09, 2020 MRI study. There is also a sclerotic lesion in the superior pubic ramus on the left. This measures approximately 12 mm. This was observed on MRI as well. The left iliac lesion is less well seen radiographically. SI joints appear intact. No other sclerotic or lytic skeletal metastatic site is appreciated. IMPRESSION: Sclerotic metastatic foci seen in the left ischium and left superior pubic ramus. No evidence of pathologic fracture. <Electronically signed by Anjum Cain > 03/26/20 [id number]
== END ==
LOC: M RAD 15:10
PROVIDERS: ATTEND General Practice
DX: C79.51 Secondary malignant neoplasm of bone (principal)

== ENCOUNTER → 2020-03-26 | Outpatient (CLI) | payer BC ==
--- NOTE | 2020-03-26 15:56 | RADONC ---
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 Diagnosis/Treatment History Oncologic History From Dr. Arboleda's note: T2N0M0, stage II ampullary adenocarcinoma diagnosed 2008 status post Whipple with Dr. Joseph Jose. Adjuvant gemcitabine 02/2009-07/2009, interrupted with adjuvant combined chemoradiation to 45 Gy in 25 fractions with capecitabine May 2009. History of pancreatitis and papillotomy (?) 2012. January 2015 lung metastases. Abraxane/gemcitabine 01/2015-08/2015. Maintenance Abraxane 09/2015-11/2015. Gemcitabine 11/2014-03/2016. FOLFOX 04/2016-11/2016. Treatment holiday 11/2016-04/2017. FOLFOX 04/2017-02/2018. FOLFIRI 02/2018 one cycle, poorly tolerated, discontinued. FOLFOX 03/2018-06/2018. Treatment holiday 06/2018-04/2019. Disease progression with multifocal lung metastases and dominant large left posteromedial pleural-based mass up to 6.7 cm, in addition to T6 and T12 site seen on 05/14/2019 MRI, T11 metastasis on CT 05/18/2019. [id number] [place] [facility] [place] Palliative radiation T5-7, completed 06/10/2019. Whole-brain radiation 07/15/2019-07/28/2019. Thoracic cryoablation of L 6th rib metastatic focus 07/18/2019. Palliative FOLFIRI chemotherapy, day one, cycle one 07/21/2019. Major dose reduction due to prior difficulties tolerating this drug requiring G-CSF s upport. 03/23/20 Decided to stop chemotherapy Interval History Notes she fell at home onto her butt yesterday. Does not think that she broke anything. Pain the left hip and left ribs has resolved post palliative RT. Pain is located in the right mid thoracic region starts in the back and radiates to the front, also located in the right side of the low back and hip bones. Pain has been 7-8/10 in recent days, but has been present for several weeks. For this she is taking decadron and gabapentin, has morphine but makes her nauseous. Feels these medications are adequate. She is also taking medical marijuana as an appetite stimulant and finds this helpful. She is following with palliative care. No plans for additional systemic therapy. Just focusing on pain control and comfort at this time. Current Therapy No cancer directed therapy Stage Stage IV ampullary adenocarcinoma Social History: Non-smoker Non-drinker Allergies / Meds Allergies: Coded Allergies: hydromorphone (Verified Adverse Reaction, Intermediate, NAUSEA/VOMITING, 07/12/18) Home Meds Active Scripts Dexamethasone (Dexamethasone) 2 Mg Tablet, 1-2 TAB PO DAILY, #50 TAB 2 Refills Prov:SAULO ARBOLEDA MD 03/23/20 Pantoprazole Sodium (Protonix) 40 Mg Tab, 40 MG PO BID, #180 TAB 3 Refills Prov:SAULO ARBOLEDA MD 12/08/19 Gabapentin (Neurontin) 100 Mg Capsule, 2 CAP PO TID for 30 Days, #180 CAP Prov:Yael Alan MD 10/14/19 Pancreatic Enzymes (Cristian Vega 24,000 Units Capsule) 1 Each Capsule., 1 CAP PO TID for 90 Days, #270 CAP 5 Refills Prov:Yael Alan MD 07/10/19 Reported Medications Famotidine (Pepcid AC) 10 Mg Tablet, 10 MG PO DAILY for 30 Days, #30 TAB 08/04/19 Acetaminophen (Acetaminophen) 500 Mg Tablet, 1500 MG PO Q6H PRN for PAIN, TAB 07/18/19 Lactobacillus Acidophilus (Probiotic) 1 Each Capsule, 1 CAP PO DAILY, CAP 05/16/19 Review of Systems Review of Systems Constitutional: Reports: Weakness, Fatigue; Denies: Weight Loss Eyes: Denies: Pain, Vision change HEENT: Denies: Head Aches Pulmonary: Denies: Dyspnea, Cough Cardiovascular: Reports: Chest Pain; Denies: Palpitations Gastrointestinal: Reports: Nausea; Denies: Vomiting Hematologic: Denies: Bruising Musculoskeletal: Reports: Back pain, Midthoracic pain; Denies: Neck pain, Joint pain Neurological: Denies: Weakness, Numbness Psych: Reports: Mood Normal Physical Examination Vital Signs Ht 66" Wt 103 lb BMI 16 T 98 P 98 RR 18 BP 118/83 O2 95% Pain 5 Fatigue 5 General Exam: Positive: Alert, Cooperative, No Acute Distress, Other (Cachectic) Eye Exam: Positive: PERRLA, EOMI ENT EXAM: Positive: Atraumatic Neck Exam: Positive: Supple Neuro Exam: Positive: Normal Gait, Normal Speech, Normal Tone, Cranial Nerves 3-12 NL Psych Exam: Positive: Mental status NL Other Physical Findings Musculoskeletal: There is tenderness in the posterior right ~7th rib location near insertion with the vertebral body, palpation did not elicit radiating pain anteriorly. There is tenderness in the region of the right SI joint as well as the right posterior iliac wing. Diagnostic and Laboratory Diagnostic Review Radiologic images, relevant labs and pathology reports were personally reviewed and discussed with Ms. Parish. Assessment and Plan Impression Assessment Ms. Parish is a 55 year old female with a history of stage IV ampullary adenoc arcinoma with extensive visceral and bony metastases, she recently completed palliative RT to the left 6th & 7th rib and left hip 20 Gy in 5 fractions completed on 02/11/20 who is seen today for consideration of palliative RT for pain control to additional painful sites. She has elected to discontinue systemic therapy due to side effects. She has two main foci of pain which have been present for several weeks, right posterior mid-thoracic rib (7th?) and right SI joint area. I reviewed her CT simulation scans from 01/29/20 and do see a sclerotic metastasis in the lateral right 4th rib, unclear if this is involved or not, and she certainly could have developed a new lesion more corresponding with the site of tenderness on exam today. Similarly there is no obvious metastatic correlate for the site of her sacro- iliac centered pain on 01/29/20 CT simulation or 01/09/20 MRI pelvis. We discussed moving forward with a planning session on the presumption of metastases at these sites. I will place a radio-opaque marker on the epicenters of pain and treat or not treat based on the planning CT. If there are lesions there I will give 20 Gy in 5 fractions to each site concurrently as we have done before. I also will order a plain film AP pelvis to R/O fracture in the setting of recent fall at home. I offered referral to home care, she politely declined. Performance Status ECOG 1 Plan Palliative RT to the right mid thoracic rib, right pelvis 20 Gy in 5 fractions Simulation next week AP pelvis film today due to fall Ms. Parish was encouraged to call with questions or concerns in the interim period. CATIE CHANEY MD Mar 26, 2020 15:56
== END ==
LOC: M ONCR 14:33
PROVIDERS: ATTEND General Practice
DX: C24.1 Malignant neoplasm of ampulla of Vater (principal); C79.51 Secondary malignant neoplasm of bone; C79.31 Secondary malignant neoplasm of brain

== ENCOUNTER → 2020-04-15 | Outpatient (RCR) | payer BC | LOC: M ONCR 03-31 13:57 | PROVIDERS: ATTEND General Practice | DX: C79.51 Secondary malignant neoplasm of bone (principal) ==

== ENCOUNTER 2020-04-20 14:07 | Outpatient (RCR) | payer BC ==
[~2020-04-20 14:07] MED LIST changes: +GABA-282 PO; -GABA-843 PO
== END 2020-05-16 ==
LOC: M ONCR 14:07
PROVIDERS: ATTEND General Practice
DX: C79.51 Secondary malignant neoplasm of bone (principal)

== ENCOUNTER → 2020-04-21 | Outpatient (CLI) | payer BC ==
[~2020-04-21] MED LIST changes: -GABA-282 PO; +GABA-843 PO; +PROHANCE 279.3MG/ML 15ML VIAL As Ordered ONE
--- NOTE | 2020-04-21 15:38 | REP ---
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 COMPARISON: Comparison MRI studies are dated December 31, 2019 and September 23, 2019.. TECHNIQUE: Sagittal and axial T1 and T2-weighted scans are acquired in the usual fashion with and without fat saturation. Sequences include spin echo, turbo spin-echo, and STIR imaging sequences. The gadolinium enhancement dose is 8 mL of intravenous ProHance. Post gadolinium enhanced T1 fat sat sagittal and T1 axial images are acquired. FINDINGS: Skeletal metastatic disease is again seen. There is been progressive and now a complete involvement of the L1 and L3 vertebral bodies. The L1 and L3 vertebral bodies extend bilaterally into their respective pedicles and superior articular facets. Bilateral transverse processes are involved at these levels. There is new epidural extension along the right and to a lesser extent left ventral lateral margin of the spinal canal associated with the L1 vertebral body. There is mild thecal sac compression associated with this epidural disease. This is a change from the most recent prior study. There is stable mild ventral epidural enhancement associated with the posterior margin of the L3 vertebral body. There is a metastatic lesion involving the left pedicle at T12 which appear appears to be new from the prior study. There is abnormal signal intensity in the inferior endplate of T11 consistent with metastasis in this location. There is no evidence of pathologic fracture. At L3-4, canal size developmentally somewhat small. No focal disc protrusion is seen. The L4-5 disc is narrowed and there is posterior diffuse disc bulging. There is mild central canal stenosis at this level due to disc bulging and mild bilateral ligamentum flavum hypertrophy. At L5-S1, there is central disc bulging. No extra vertebral abnormality is observed. IMPRESSION: Progressive skeletal metastatic disease with new ventrolateral epidural extension associated with metastasis at L1 and mild thecal sac compression. No pathologic fracture is seen. Progressive metastatic involvement is observed in the L1, L3, and T12 vertebral bodies. Diffuse disc bulging at L2-3 and L4-5 with mild central canal stenosis at L4-5. <Electronically signed by Anjum Cain > 04/21/20 [id number]
--- NOTE | 2020-04-21 15:52 | REP ---
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 COMPARISON: Comparison MRI study of the thoracic spine is from December 31, 2019. September 23, 2019 prior study is also reviewed.. TECHNIQUE: 8 mL of intravenous ProHance is the contrast enhancement dose. Pre and postcontrast enhanced images are acquired including axial and sagittal T1 and T2 weighted scans with without fat saturation. FINDINGS: There has been significant interval progression in this patient's skeletal metastatic disease in the thoracic spine. Anterior and posterior element fairly extensive involvement is seen at each level from T3-T8 and from T10-T12. In other words, the only spared thoracic vertebrae are T1, T2, and T9. There is now confluent metastatic involvement of the anterior vertebral body at T5, T6, and T7 as well as at T11. There is dorsal epidural canal encroachment associated with the posterior element disease at the T7 and T8 level with mild spinal cord compression. There is enhancing epidural thickening without obvious cord compression extending up as high as T4 and as low as T8. There is some dorsal and ventral epidural extension at the T11 level with thecal sac narrowing but no regis cord compression. There is some left paravertebral soft tissue extension at T11 and multiple extensive posterior rib lesions are seen particularly on the left, most pronounced at the 11th, the 7th, the 5th, and 4th and 3rd posterior ribs on the left. There is less extensive involvement of the right posterior 7th and 8th posterior ribs. There are extensive pulmonary parenchymal nodular lesions consistent with widespread pulmonary metastasis. These are more extensive than on the September 23, 2019 and December 31, 2019 prior study. No pathologic fracture is seen. IMPRESSION: Progressive skeletal and pulmonary parenchymal metastatic disease as discussed in detail above. There is epidural disease encroaching on the spinal canal to some degree from T4-T8. There is evidence of mild cord compression due to this at the T7 and T8 level. <Electronically signed by Anjum Cain > 04/21/20 [id number]
== END ==
LOC: M RAD 12:35
PROVIDERS: ATTEND Physician Assistant Medical
DX: C41.2 Malignant neoplasm of vertebral column (principal)
CPT/HCPCS: 72157; 72158; A9576